=== PATIENT | female | born 1960 | race Caucasian/White ===

== ENCOUNTER 2021-05-01 20:12 | Emergency (ER) | payer SELFPAY ==
--- OUTSIDE RECORDS SUMMARY | 2021-05-01 20:14 | XMS REPORT | Continuity of Care Document ---
:1960 Author Organization [facility] t Address formerly [facility] [place] [address] Care Team Providers Name Role Phone Prema ADAMS Primary Care Physician Unavailable ZASANCHEZ Attending Clinician Unavailable Etta FRY Attending Clinician Unavailable Tess PADILLA Attending Clinician Unavailable Prema DUFFY Attending Clinician Unavailable ROHIT Attending Clinician Unavailable Victor Manuel CURTIS Attending Clinician Unavailable BARBRA Attending Clinician Unavailable Prema ADAMS Attending Clinician Unavailable Shandra REBOLLEDO Attending Clinician Unavailable Tess WARD Attending Clinician Unavailable DOROTEO, Justice Attending Clinician Unavailable Anju OROZCO Attending Clinician Unavailable HEBERT Attending Clinician Unavailable Elfego LIM Attending Clinician Unavailable Efra ESPARZA Attending Clinician Unavailable Angela SANCHEZ Attending Clinician Unavailable Anju MANN Attending Clinician Unavailable JUNE Attending Clinician Unavailable Efra ESPARZA Attending Clinician Unavailable Shandra MARISCAL Attending Clinician Unavailable KYLEE, Melba Attending Clinician Unavailable Maricruz MICHEL Attending Clinician Unavailable Payers Payer Name Policy Type Policy Number Effective Date Expiration Date Carlos HUNT [id number] 0710-05-01 2021 PLANNING INDIGENT 00:00:00 00:00:00 Problems This patient has no known problems. Allergies, Adverse Reactions, Alerts This patient has no known allergies or adverse reactions. Medications This patient has no known medications. Procedures This patient has no known procedures. Encounters Start End Encounter Admission Attending Care Care Encounter Source Date/Time Date/Time Type Type Clinicians Facility Department ID 2021-06-15 2021-06-15 Outpatient [facility] [id number] [place] [address] 00:00:00 00:00:00 Health 2021-05-31 2021-05-31 Outpatient [facility] [id number] [place] 00:00:00 00:00:00 [facility] 2021-05-18 2021-05-18 Outpatient [facility] [id number] [place] 00:00:00 00:00:00 [facility] 2021-05-11 2021-05-11 Outpatient HEBERT, [facility] [id number] [place] 00:00:00 00:00:00 [facility] 2021-05-02 2021-05-02 [id number] [place] 00:00:00 00:00:00 [facility] 2021-05-01 2021-05-01 [id number] [place] 07:59:05 09:12:17 [facility] 2021-04-20 2021-04-20 Outpatient [facility] [id number] [place] 07:21:09 10:23:16 [facility] 2021-04-19 2021-04-19 Outpatient CLIVE, [facility] [id number] [place] 08:57:09 12:02:19 [facility] 2021-04-12 2021-04-12 [facility] [id number] [place] 11:07:25 11:35:47 [facility] 2021-04-12 2021-04-12 [facility] [id number] [place] 10:02:46 10:42:29 [facility] 2021-04-10 2021-04-10 Outpatient ROHIT, [facility] [id number] [place] 14:45:29 15:31:40 [facility] 2021-04-05 2021-04-05 Outpatient [facility] [id number] [place] 07:35:17 10:25:03 [facility] 2021-04-03 2021-04-03 Outpatient [facility] [id number] [place] 00:00:00 00:00:00 [facility] 2021-04-02 2021-04-02 Outpatient [facility] [id number] [place] 16:13:09 16:18:39 [facility] 2021-04-02 2021-04-02 [facility] [id number] [place] 00:00:00 00:00:00 [facility] 2021-03-27 2021-03-27 Outpatient [facility] [id number] [place] 00:00:00 00:00:00 [facility] 2021-03-27 2021-03-27 Outpatient [facility] [id number] [place] 00:00:00 00:00:00 [facility] 2021-03-26 2021-03-26 Outpatient [facility] [id number] [place] 00:00:00 00:00:00 [facility] 2021-03-22 2021-03-22 Outpatient EMPERATRIZINGAME [facility] [id number] [place] 05:49:17 14:32:38 , MILTON Cervantes [facility] 2021-03-20 2021-03-20 Emergency [facility] [id number] [place] 13:51:00 22:32:00 [facility] 2021-03-20 2021-03-20 Emergency [facility] [id number] [place] 17:35:21 17:35:21 [facility] 2021-03-20 2021-03-20 Emergency 1 BELLE, [facility] [id number] [place] 13:51:00 13:51:00 [facility] 2021-03-20 2021-03-20 Outpatient [facility] [id number] [place] 11:20:11 11:43:56 [facility] 2021-03-19 2021-03-19 Outpatient [facility] [id number] [place] 09:19:44 10:13:10 [facility] 2021-03-14 2021-03-14 [facility] [id number] [place] 07:23:11 14:01:19 [facility] 2021-03-09 2021-03-09 Outpatient BRYAN, [facility] [id number] [place] 13:50:05 13:54:41 [facility] 2021-03-09 2021-03-09 [facility] [id number] [place] 00:00:00 00:00:00 [facility] 2021-03-08 2021-03-08 Outpatient [facility] [id number] [place] 16:09:53 17:01:12 [facility] 2021-03-08 2021-03-08 [facility] [id number] [place] 07:12:11 09:08:51 [facility] 2021-03-08 2021-03-08 Outpatient [facility] [id number] [place] 00:00:00 00:00:00 [facility] 2021-03-07 2021-03-07 [facility] [id number] [place] 07:28:41 17:06:28 [facility] 2021-02-16 2021-02-28 [facility] [id number] [place] 17:54:00 18:00:00 ABIMAEL [facility] 2021-02-27 2021-02-27 Outpatient [facility] [id number] [place] 13:47:56 23:59:00 [facility] 2021-02-20 2021-02-20 Outpatient [facility] [id number] [place] 14:56:30 23:59:00 [facility] 2021-02-15 2021-02-16 [facility] [id number] [place] 18:43:00 17:37:00 [facility] 2021-02-15 2021-02-15 [facility] [id number] [place] 18:43:00 18:43:00 [facility] 2021-02-15 2021-02-15 Outpatient [facility] [id number] [place] 07:30:09 14:05:13 [facility] 2021-02-12 2021-02-12 [facility] [id number] [place] 00:00:00 00:00:00 [facility] 2021-02-01 2021-02-01 [facility] [id number] [place] 00:00:00 00:00:00 [facility] 2021-01-19 2021-01-19 [facility] [id number] [place] 09:16:35 23:59:00 [facility] 2021-01-19 2021-01-19 [facility] [id number] [place] 08:42:18 09:33:54 [facility] 2021-01-16 2021-01-16 Outpatient [facility] [id number] [place] 08:13:29 08:41:37 [facility] 2021-01-15 2021-01-15 Outpatient [facility] [id number] [place] 00:00:00 00:00:00 [facility] 2021-01-10 2021-01-10 [facility] [id number] [place] 07:38:08 13:33:18 [facility] 2021-01-10 2021-01-10 [facility] [id number] [place] 00:00:00 00:00:00 [facility] 2021-01-03 2021-01-03 Outpatient PAM, [facility] [id number] [place] 08:13:41 10:31:26 [facility] 2020-12-28 2020-12-28 Outpatient BRYAN, [facility] [id number] [place] 06:48:31 10:43:42 [facility] 2020-12-20 2020-12-20 Outpatient ZADOMENICAR, [facility] [id number] [place] 00:00:00 00:00:00 [facility] 2020-12-19 2020-12-19 Outpatient ZADOMENICAR, [facility] [id number] [place] 00:00:00 00:00:00 [facility] 2020-12-05 2020-12-05 Outpatient ROSSIR, [facility] [id number] [place] 00:00:00 00:00:00 [facility] 2020-11-30 2020-11-30 Outpatient CARNIA, [facility] [id number] [place] 00:00:00 00:00:00 [facility] 2020-11-24 2020-11-24 Outpatient ESPARZA, [facility] [id number] [place] 10:32:24 10:41:06 [facility] 2020-11-24 2020-11-24 Outpatient [facility] [id number] [place] 00:00:00 00:00:00 [facility] 2020-11-24 2020-11-24 Outpatient ROSSIR, [facility] [id number] [place] 00:00:00 00:00:00 [facility] 2020-11-23 2020-11-23 Outpatient LAURA, [facility] [id number] [place] 07:14:19 15:45:33 [facility] 2020-11-22 2020-11-22 Outpatient MACKENZIE, [facility] [id number] [place] 00:00:00 00:00:00 [facility] 2020-11-22 2020-11-22 Outpatient LAURA, [facility] [id number] [place] 00:00:00 00:00:00 [facility] 2020-11-22 2020-11-22 Outpatient [facility] [id number] [place] 00:00:00 00:00:00 [facility] 2020-11-17 2020-11-17 Outpatient CASSIDYPATTYU, [facility] [id number] [place] 08:37:17 09:46:27 [facility] 2020-11-16 2020-11-16 Outpatient [facility] [id number] [place] 00:00:00 00:00:00 [facility] 2020-11-09 2020-11-09 Outpatient ZAHIR, [facility] [id number] [place] 07:18:58 14:12:04 [facility] 2020-11-08 2020-11-08 Outpatient ZAHIR, [facility] [id number] [place] 07:20:02 07:20:02 [facility] 2020-11-07 2020-11-07 Outpatient [facility] [id number] [place] 08:56:51 10:41:20 [facility] 2020-11-01 2020-11-01 Outpatient ZAHIR, [facility] [id number] [place] 12:12:56 12:18:43 [facility] 2020-11-01 2020-11-01 Outpatient ZAHIR, [facility] [id number] [place] 00:00:00 00:00:00 [facility] 2020-10-27 2020-10-27 Outpatient ZAHIR, [facility] [id number] [place] 00:00:00 00:00:00 [facility] 2020-10-25 2020-10-25 Outpatient ZAHIR, [facility] [id number] [place] 10:22:05 23:59:00 [facility] 2020-10-25 2020-10-25 Outpatient ZAHIR, [facility] [id number] [place] 12:07:10 14:55:26 [facility] 2020-10-25 2020-10-25 Outpatient ZAHIR, [facility] [id number] [place] 07:22:11 07:22:11 [facility] 2020-10-19 2020-10-19 Outpatient ESPARZA, [facility] [id number] [place] 09:15:23 09:42:11 [facility] 2020-10-15 2020-10-16 Emergency HOOT, [facility] [id number] [place] 17:22:00 02:18:00 [facility] 2020-10-15 2020-10-15 Emergency KYLEE, [facility] [id number] [place] 18:12:53 18:12:53 [facility] 2020-10-11 2020-10-[address] [facility] [id number] [place] 08:42:57 08:51:00 [facility] 2020-10-11 2020-10-[address] [facility] [id number] [place] 00:00:00 00:00:00 [facility] 2020-10-10 2020-10-10 [facility] [id number] [place] 07:16:46 10:17:40 [facility] 2020-10-03 2020-10-[address] [facility] [id number] [place] 16:51:00 00:44:00 [facility] Results Test Description Test Time Test Comments Results Result Comments Source HIV 1+2 Ab+HIV1 p24 Ag SerPl Ql [place] 2021-03-20 19:45:04 Test Item Value Reference Range Interpretation Comme nts HIV 1+2 Ab+HIV1 p24 Ag SerPl Ql IA (test code = 23282-2) NEGATIVE Negative SARS-CoV-2 RNA Resp Ql [id number] 04:09:13 Test Item Value Reference Range Interpretation Comments Hospitalized? (test No code = 65084-8) ICU? (test code = No 73673-3) Symptomatic as defined No by CDC? (test code = 45907-3) Employed in No Healthcare? (test code = 24309-4) Resident in a No congregate care setting (including nursing homes, residential care for people with intellectual and developmental disabilities, psychiatric treatment facilities, group homes, board and care homes, homeless longterm, foster care or other): (test code = 97227-9) ? (test code = No 41968-3) SARS-CoV-2 RNA Resp Ql NOT DETECTED Not Detected INTER PRETATION: No ALEJANDRA+probe (test code = detec table levels 03255-8) of SARS-CoV-2 Coronavirus (COVID-19) were present in this patient's sampl e by this test. A no t detected result does not exclud e the possibility of active infectio n with this virus due to other factor s that may affect the results such as a poorly collecte d sample, viral titers below th e limit of detect ion of the assay, a nd the infrequent possibility of inhibitors in t he sample. This re sult should be interpreted in conjunction wit h clinical, radiographic, a nd other laborator y findings and sh ould not be used as the sole indicator of active infectio n with SARS-CoV-2 Coronavirus (COVID-19). COMMENT: This cherry real-time reverse transcriptase polymerase chain reaction (RT-PCR) test rapidly detects SARS-CoV-2 (COVID-19) virus from nasopharyngeal and nasal swab specimens. In accordance with the FDA's guidance document "Policy for Diagnostic Tests for Coronavirus Disease-2019 during the Public Health Emergency", this test was developed, and its performance characteristics were verified by the [facility] molecular diagnostics laboratory and is authorized for clinical diagnostic use. This laboratory is certified under the Clinical Laboratory Improvement Amendments (CLIA) as qualified to perform high complexity clinical laboratory testing.
[2021-05-01] MEDS ORDERED: HYDROCODONE/APAP 10/325 TAB ONE (22:35)
--- NOTE | 2021-05-01 22:44 | EDPHYS ---
Physician Documentation [facility] Name: Yamilka Edward Age: 60 yrs Sex: Female : 1960 Arrival Date: 05/01/2021 Time: 20:16 Bed 11 Private MD: ED Physician Parrish Hernandez HPI: 05/01 20:50 This 60 yrs old Female presents to ER via EMS with complaints of Fall Injury. rn 20:50 Details of fall: The patient fell from an upright position, while walking. Onset: The rn symptoms/episode began/occurred just prior to arrival. Associated injuries: The patient sustained Right knee and right thigh. Severity of symptoms: At their worst the symptoms were moderate, in the emergency department the symptoms have improved. The patient has not experienced similar symptoms in the past. The patient has not recently seen a physician. Patient reports was standing and walking, fell onto both knees, thinks hit right thigh with coffee table. Reports right knee and right thigh is was hurting. No head injury or loss of consciousness. No other injuries. States left knee does not feel injured or broken.. Historical: - Allergies: 20:43 Aspirin; lp1 20:43 PENICILLINS; lp1 20:43 Betadine; lp1 20:43 erythromycin; lp1 20:43 Iodine; lp1 20:43 Zofran; lp1 - Home Meds: 20:43 Cymbalta 60 mg oral cpDR 2 caps once daily [Active]; Abilify 10 mg oral tab 1 tab once lp1 daily [Active]; amlodipine 5 mg tab 1 tab once daily [Active]; lithium carbonate 300 mg Oral tab 1 tab 3 times per day [Active]; Dexilant 30 mg oral CpDB 1 cap once daily [Active]; Topamax 100 mg Oral tab [Active]; mirtazapine 7.5 mg Oral tab 1 tab once daily [Active]; - PMHx: 20:43 Hypertensive disorder; Fibromyalgia; Depressive disorder; Rheumatoid arthritis; lp1 - PSHx: 20:43 tubal ligation; breast lump removal; lp1 - Immunization history:: Adult Immunizations up to date, Client reports receiving the 2nd dose of the Covid vaccine, Date received: October 31, 2020 Flu vaccine is up to date. - Social history:: Smoking status: Patient denies any tobacco usage or history of. - Family history:: not pertinent. - Hospitalizations: : No recent hospitalization is reported. - Code Status:: Full code. ROS: 20:50 Constitutional: Negative for fever, chills, and weight loss, Eyes: Negative for injury, rn pain, redness, and discharge, Neck: Negative for injury, pain, and swelling, Cardiovascular: Negative for chest pain, palpitations, and edema, Respiratory: Negative for shortness of breath, cough, wheezing, and pleuritic chest pain, Abdomen/GI: Negative for abdominal pain, nausea, vomiting, diarrhea, and constipation, Back: Negative for injury and pain, MS/Extremity: Positive for right knee and thigh injury and pain Skin: Negative for injury, rash, and discoloration, Neuro: Negative for headache, weakness, numbness, tingling, and seizure. Exam: 20:50 Constitutional: This is a well developed, well nourished patient who is awake, alert, rn and in no acute distress. Head/Face: Normocephalic, atraumatic. Eyes: Periorbital areas with no swelling, redness, or edema. MS/ Extremity: Pulses equal, no cyanosis. Neurovascular intact. Painless and full normal range of motion of left knee and hip. No tenderness distally. Mild tenderness right lateral thigh and right knee but able to actively range right knee and hip slowly. No patellar tenderness or dislocation. Vital Signs: 20:45 BP 121 / 75; Pulse 79; Resp 18; Temp 98.3(O); Pulse Ox 99% on R/A; Weight 94.35 kg (R); lp1 Height 5 ft. 8 in. (172.72 cm); Pain 8/10; 23:05 BP 114 / 72; Pulse 65; Resp 20 S; Temp 97.9(O); Pulse Ox 99% on R/A; cc4 20:45 Body Mass Index 31.63 (94.35 kg, 172.72 cm) lp1 MDM: 20:27 Patient medically screened. rn 22:42 Differential diagnosis: contusion, fracture, sprain, strain. Data reviewed: vital rn signs, nurses notes, radiologic studies, plain films, and as a result, I will discharge patient. Test interpretation: by ED physician or midlevel provider: plain radiologic studies, X-ray right femur and knee negative for acute fracture or dislocation.. Counseling: I had a detailed discussion with the patient and/or guardian regarding: the historical points, exam findings, and any diagnostic results supporting the discharge/admit diagnosis, radiology results, the need for outpatient follow up, to return to the emergency department if symptoms worsen or persist or if there are any questions or concerns that arise at home. Response to treatment: the patient's symptoms have markedly improved after treatment, and as a result, I will discharge patient. Special discussion: I discussed with the patient/guardian in detail that at this point there is no indication for admission to the hospital. It is understood, however, that if the symptoms persist or worsen the patient needs to return immediately for re-evaluation. 05/01 20:32 Order name: XRAY Femur RIGHT rn Administered Medications: 22:35 Drug: [place] (HYDROcodone-acetaminophen) 10 mg-325 mg 1 tabs Route: PO; cc4 23:05 Follow up: Response: No adverse reaction; Pain is decreased cc4 Disposition Summary: 05/01/21 22:44 Discharge Ordered Location: Home rn Problem: new rn Symptoms: have improved rn Condition: Stable rn Diagnosis - Contusion of right knee rn Followup: rn - With: Private Physician - When: As needed - Reason: Recheck today's complaints, Re-evaluation by your physician Discharge Instructions: - Discharge Summary Sheet rn - Contusion rn - Acute Knee Pain, Adult rn Forms: - Medication Reconciliation Form rn - Thank You Letter rn - Antibiotic corporate strategy intern - Prescription Opioid Use rn Signatures: Dispatcher [employer] Parrish Kline MD MD rn Pena, Laura RN RN lp1 Cindy Maradiaga RN RN cc4
--- NOTE | 2021-05-01 22:44 | ER ---
Nurse's Notes [facility] Name: Yamilka Edward Age: 60 yrs Sex: Female : 1960 Arrival Date: 05/01/2021 Time: 20:16 Bed 11 Private MD: Diagnosis: Contusion of right knee Presentation: 05/01 20:38 Chief complaint: EMS states: Called for patient who tripped in living room, falling lp1 onto knees, reporting pain to right anterior knee and pain with weightbearing. 20:41 Coronavirus screen: At this time, the client does not indicate any symptoms associated lp1 with coronavirus-19. Ebola Screen: No symptoms or risks identified at this time. 20:41 Method Of Arrival: EMS: [facility] lp1 20:45 Acuity: KRYSTLE 4 lp1 20:45 Initial Sepsis Screen: Does the patient meet any 2 criteria? No. Patient's initial lp1 sepsis screen is negative. Does the patient have a suspected source of infection? No. Patient's initial sepsis screen is negative. Risk Assessment: Do you want to hurt yourself or someone else? Patient reports no desire to harm self or others. Onset of symptoms was May 01, 2021. Care prior to arrival: Medication(s) given: Tylenol, 1000 mg. Historical: - Allergies: 20:43 Aspirin; lp1 20:43 PENICILLINS; lp1 20:43 Betadine; lp1 20:43 erythromycin; lp1 20:43 Iodine; lp1 20:43 Zofran; lp1 - Home Meds: 20:43 Cymbalta 60 mg oral cpDR 2 caps once daily [Active]; Abilify 10 mg oral tab 1 tab once lp1 daily [Active]; amlodipine 5 mg tab 1 tab once daily [Active]; lithium carbonate 300 mg Oral tab 1 tab 3 times per day [Active]; Dexilant 30 mg oral CpDB 1 cap once daily [Active]; Topamax 100 mg Oral tab [Active]; mirtazapine 7.5 mg Oral tab 1 tab once daily [Active]; - PMHx: 20:43 Hypertensive disorder; Fibromyalgia; Depressive disorder; Rheumatoid arthritis; lp1 - PSHx: 20:43 tubal ligation; breast lump removal; lp1 - Immunization history:: Adult Immunizations up to date, Client reports receiving the 2nd dose of the Covid vaccine, Date received: October 31, 2020 Flu vaccine is up to date. - Social history:: Smoking status: Patient denies any tobacco usage or history of. - Family history:: not pertinent. - Hospitalizations: : No recent hospitalization is reported. - Code Status:: Full code. Screenin:25 Fall Risk Fall in past 12 months (25 points). cc4 20:43 Abuse screen: Denies threats or abuse. Denies injuries from another. Nutritional lp1 screening: No deficits noted. Tuberculosis screening: No symptoms or risk factors identified. Assessment: 20:25 General: Appears in no apparent distress. comfortable, Behavior is calm, cooperative. cc4 Pain: Complains of pain in right thigh \T\ right knee s/p fall \T\ home Pain radiates to right knee into right thigh. Pain currently is 4 out of 10 on a pain scale. Quality of pain is described as aching, Pain began 2 hours ago. Is intermittent, Alleviated by medications, reports pain decreasing from Tylenol given per EMS \T\ scene. Aggravated by weight bearing, leg immobilizer removed from right leg per Dr. Hernandez with exam; drill press set up operator radial here with portable X-rays done; ice pack applied right thigh. Neuro: No deficits noted. Level of Consciousness is awake, alert, obeys commands, Oriented to person, place, time, situation. Cardiovascular: No deficits noted. Respiratory: No deficits noted. Airway is patent Respiratory effort is even, unlabored, Respiratory pattern is regular, symmetrical. GI: No signs and/or symptoms were reported involving the gastrointestinal system. : No signs and/or symptoms were reported regarding the genitourinary system. EENT: No signs and/or symptoms were reported regarding the EENT system. Derm: No deficits noted. Skin is intact, No bruising noted. Musculoskeletal: No deficits noted. Capillary refill < 3 seconds, scant edema noted right knee, otherwise, no deformity noted.. 21:30 Reassessment: No changes from previously documented assessment. Resting quietly. cc4 22:35 Pain: Complains of pain in right thigh; right hip Pain radiates to radiating from right cc4 thigh into right hip Pain currently is 10 out of 10 on a pain scale. Quality of pain is described as sharp, throbbing, Pain began 2 hours ago. with fall \T\ home; Dr. Hernandez notified with new order received; [place] 10 mg given po. 23:05 Reassessment: Patient appears in no apparent distress at this time. Reports pain cc4 decreased to 6/10 on pain scale of right thigh/hip. Patient states feeling better. Vital Signs: 20:45 BP 121 / 75; Pulse 79; Resp 18; Temp 98.3(O); Pulse Ox 99% on R/A; Weight 94.35 kg (R); lp1 Height 5 ft. 8 in. (172.72 cm); Pain 8/10; 23:05 BP 114 / 72; Pulse 65; Resp 20 S; Temp 97.9(O); Pulse Ox 99% on R/A; cc4 20:45 Body Mass Index 31.63 (94.35 kg, 172.72 cm) lp1 ED Course: 20:16 Patient arrived in ED. mw2 20:25 Patient has correct armband on for positive identification. Fall risk band placed. Bed cc4 in low position. Call light in reach. Side rails up X2. Adult w/ patient. 20:27 Parrish Hernandez MD is Attending Physician. rn 20:48 Arm band placed on. lp1 20:49 Triage completed. lp1 20:57 XRAY Femur RIGHT In Process Unspecified. EDMS 21:08 Cindy Maradiaga, ALLIE is Primary Nurse. cc4 23:05 No provider procedures requiring assistance completed. cc4 23:05 Patient did not have IV access during this emergency room visit. cc4 Administered Medications: 22:35 Drug: [place] (HYDROcodone-acetaminophen) 10 mg-325 mg 1 tabs Route: PO; cc4 23:05 Follow up: Response: No adverse reaction; Pain is decreased cc4 Outcome: 22:44 Discharge ordered by . rn 23:05 Discharged to home via wheelchair. cc4 23:05 Condition: improved 23:05 Discharge instructions given to patient, Instructed on discharge instructions, follow up and referral plans. Demonstrated understanding of instructions, follow-up care, medications. 23:27 Patient left the ED. cc4 Signatures: Dispatcher [employer] EDMS Parrish Hernandez MD MD rn Pena, Laura, RN RN 1 Jennifer Avila 2 Cindy Maradiaga RN RN cc4 Corrections: (The following items were deleted from the chart) 20:43 20:38 Chief complaint: EMS states: Called for patient who tripped in living room lp1 lp1
[2021-05-01 23:32] VITALS: BP 121/75; TEMP 98.3; O2SAT 99
--- NOTE | 2021-05-02 14:45 | RAD REPORT ---
EXAM DESCRIPTION: RAD - Femur Right - 05/01/2021 8:56 pm CLINICAL HISTORY: Fall, distal femur and knee pain Femur Right TECHNIQUE: Frontal and lateral views of the right femur. COMPARISON: No relevant prior studies available. FINDINGS: Bones/joints: No acute fracture. Mild to moderate degenerative changes at the right hip articulation. Moderate tricompartmental degenerative changes at the level of the knee. No dislocati on. Soft tissues: Unremarkable. IMPRESSION: No acute injury. Electronically signed by: Joss Braswell MD 05/01/2021 10:26 PM RING STRIKER Due to temporary technical issues with the PACS/Fluency reporting system, reports are being signed by the in house radiologists without review as a courtesy to insure prompt reporting. The interpreting radiologist is fully responsible for the content of the report.
== END 2021-05-01 23:27 | disposition home or self-care (01) ==
LOC: ER 20:12
DX: S80.01XA Contusion of right knee, initial encounter (principal); W01.190A Fall on same level from slipping, tripping and stumbling with subsequent striking against furniture, initial encounter; Y92.009 Unspecified place in unspecified non-institutional (private) residence as the place of occurrence of the external cause; I10 Essential (primary) hypertension; Z88.6 Allergy status to analgesic agent; Z88.0 Allergy status to penicillin
CPT/HCPCS: 99283

== ENCOUNTER 2021-05-10 21:59 | Emergency (ER) | payer SELFPAY ==
--- OUTSIDE RECORDS SUMMARY | 2021-05-10 22:02 | XMS REPORT | Continuity of Care Document ---
:1960 Author Organization [facility] t Address [address] [place] [address] Care Team Providers Name Role Phone Prema ADAMS Primary Care Physician Unavailable Etta FRY Attending Clinician Unavailable HEBERT Attending Clinician Unavailable Tess PADILLA Attending Clinician Unavailable Prema DUFFY Attending Clinician Unavailable ROHIT Attending Clinician Unavailable Victor Manuel CURTIS Attending Clinician Unavailable BARBRA Attending Clinician Unavailable Prema ADAMS Attending Clinician Unavailable Shandra REBOLLEDO Attending Clinician Unavailable ED, Tess Attending Clinician Unavailable DOROTEO, Justice Attending Clinician Unavailable Anju OROZCO Attending Clinician Unavailable HEBERT Attending Clinician Unavailable Elfego LIM Attending Clinician Unavailable ISAIAS, Efra Attending Clinician Unavailable Angela SANCHEZ Attending Clinician Unavailable Anju MANN Attending Clinician Unavailable JUNE Attending Clinician Unavailable ISAIAS, Efra Attending Clinician Unavailable Shandra MARISCAL Attending Clinician Unavailable KYLEE, Melba Attending Clinician Unavailable Maricruz MICHEL Attending Clinician Unavailable Payers Payer Name Policy Type Policy Number Effective Date Expiration Date Carlos HUNT [id number] [id number] 2021 [employer] 00:00:00 00:00:00 Problems This patient has no known problems. Allergies, Adverse Reactions, Alerts This patient has no known allergies or adverse reactions. Medications This patient has no known medications. Procedures This patient has no known procedures. Encounters Start End Encounter Admission Attending Care Care Encounter Source Date/Time Date/Time Type Type Clinicians Facility Department ID 2021-07-11 2021-07-11 Outpatient [facility] [id number] [place] 00:00:00 00:00:00 [facility] 2021-06-15 2021-06-15 Outpatient [facility] [id number] [address] [place] [address] 00:00:00 00:00:00 [facility] 2021-05-31 2021-05-31 Outpatient [facility] [id number] [place] 00:00:00 00:00:00 [facility] 2021-05-18 2021-05-18 Outpatient [facility] [id number] [place] 00:00:00 00:00:00 [facility] 2021-05-11 2021-05-11 Outpatient [facility] [id number] [place] 00:00:00 00:00:00 [facility] 2021-05-02 2021-05-02 Outpatient [facility] [id number] [place] 07:29:11 14:00:13 [facility] 2021-05-01 2021-05-01 Outpatient [facility] [id number] [place] 07:59:05 09:12:17 [facility] 2021-04-20 2021-04-20 Outpatient [facility] [id number] [place] 07:21:09 10:23:16 [facility] 2021-04-19 2021-04-19 Outpatient CLIVE, [facility] [id number] [place] 08:57:09 12:02:19 [facility] 2021-04-12 2021-04-12 Outpatient [facility] [id number] [place] 11:07:25 11:35:47 [facility] 2021-04-12 2021-04-12 Outpatient [facility] [id number] [place] 10:02:46 10:42:29 [facility] 2021-04-10 2021-04-10 Outpatient ROHIT, [facility] [id number] [place] 14:45:29 15:31:40 [facility] 2021-04-05 2021-04-05 Outpatient [facility] [id number] [place] 07:35:17 10:25:03 [facility] 2021-04-03 2021-04-03 Outpatient [facility] [id number] [place] 00:00:00 00:00:00 [facility] 2021-04-02 2021-04-02 Outpatient [facility] [id number] [place] 16:13:09 16:18:39 [facility] 2021-04-02 2021-04-02 Outpatient [facility] [id number] [place] 00:00:00 00:00:00 [facility] 2021-03-27 2021-03-27 Outpatient [facility] [id number] [place] 00:00:00 00:00:00 [facility] 2021-03-27 2021-03-27 Outpatient [facility] [id number] [place] 00:00:00 00:00:00 [facility] 2021-03-26 2021-03-26 Outpatient [facility] [id number] [place] 00:00:00 00:00:00 [facility] 2021-03-22 2021-03-22 Outpatient BLASSINGAME [facility] [id number] [place] 05:49:17 14:32:38 , MILTON Cerv[facility] 2021-03-20 2021-03-20 Emergency [facility] [id number] [place] 13:51:00 22:32:00 [facility] 2021-03-20 2021-03-20 Emergency [facility] [id number] [place] 17:35:21 17:35:21 [facility] 2021-03-20 2021-03-20 Emergency 1 [facility] [id number] [place] 13:51:00 13:51:00 [facility] 2021-03-20 2021-03-20 Outpatient [facility] [id number] [place] 11:20:11 11:43:56 [facility] 2021-03-19 2021-03-19 Outpatient [facility] [id number] [place] 09:19:44 10:13:10 [facility] 2021-03-14 2021-03-14 Outpatient LISANDRA, [facility] [id number] [place] 07:23:11 14:01:19 [facility] 2021-03-09 2021-03-09 Outpatient BRYAN, [facility] [id number] [place] 13:50:05 13:54:41 [facility] 2021-03-09 2021-03-09 Outpatient HEBERT, [facility] [id number] [place] 00:00:00 00:00:00 [facility] 2021-03-08 2021-03-08 Outpatient [facility] [id number] [place] 16:09:53 17:01:12 [facility] 2021-03-08 2021-03-08 Outpatient [facility] [id number] [place] 07:12:11 09:08:51 [facility] 2021-03-08 2021-03-08 Outpatient [facility] [id number] [place] 00:00:00 00:00:00 [facility] 2021-03-07 2021-03-07 Outpatient ROSEDEIDRA, [facility] [id number] [place] 07:28:41 17:06:28 [facility] 2021-02-16 2021-02-28 [facility] [id number] [place] 17:54:00 18:00:00 ABIMAEL [facility] 2021-02-27 2021-02-27 Outpatient [facility] [id number] [place] 13:47:56 23:59:00 [facility] 2021-02-20 2021-02-20 Outpatient [facility] [id number] [place] 14:56:30 23:59:00 [facility] 2021-02-15 2021-02-16 [facility] [id number] [place] 18:43:00 17:37:00 [facility] 2021-02-15 2021-02-15 Emergency 1 [facility] [id number] [place] 18:43:00 18:43:00 [facility] 2021-02-15 2021-02-15 Outpatient [facility] [id number] [place] 07:30:09 14:05:13 [facility] 2021-02-12 2021-02-12 Outpatient [facility] [id number] [place] 00:00:00 00:00:00 [facility] 2021-02-01 2021-02-01 Outpatient [facility] [id number] [place] 00:00:00 00:00:00 ADALID [facility] 2021-01-19 2021-01-19 Outpatient [facility] [id number] [place] 09:16:35 23:59:00 [facility] 2021-01-19 2021-01-19 Outpatient [facility] [id number] [place] 08:42:18 09:33:54 [facility] 2021-01-16 2021-01-16 Outpatient [facility] [id number] [place] 08:13:29 08:41:37 [facility] 2021-01-15 2021-01-15 Outpatient [facility] [id number] [place] 00:00:00 00:00:00 [facility] 2021-01-10 2021-01-10 Outpatient [facility] [id number] [place] 07:38:08 13:33:18 [facility] 2021-01-10 2021-01-10 Outpatient LISANDRA, [facility] [id number] [place] 00:00:00 00:00:00 [facility] 2021-01-03 2021-01-03 Outpatient PAM, [facility] [id number] [place] 08:13:41 10:31:26 [facility] 2020-12-28 2020-12-28 Outpatient BRYAN, [facility] [id number] [place] 06:48:31 10:43:42 [facility] 2020-12-20 2020-12-20 Outpatient ZADOMENICAR, [facility] [id number] [place] 00:00:00 00:00:00 [facility] 2020-12-19 2020-12-19 Outpatient ROSSIR, [facility] [id number] [place] 00:00:00 00:00:00 [facility] 2020-12-05 2020-12-05 Outpatient ROSSIR, [facility] [id number] [place] 00:00:00 00:00:00 [facility] 2020-11-30 2020-11-30 Outpatient MARCOET, [facility] [id number] [place] 00:00:00 00:00:00 [facility] 2020-11-24 2020-11-24 Outpatient ISAIAS, [facility] [id number] [place] 10:32:24 10:41:06 [facility] 2020-11-24 2020-11-24 Outpatient [facility] [id number] [place] 00:00:00 00:00:00 [facility] 2020-11-24 2020-11-24 Outpatient ROSSIR, [facility] [id number] [place] 00:00:00 00:00:00 [facility] 2020-11-23 2020-11-23 Outpatient LAURA, [facility] [id number] [place] 07:14:19 15:45:33 Critical access hospital 2020-11-22 2020-11-22 Outpatient MACKENZIE, [facility] [id number] [place] 00:00:00 00:00:00 [facility] 2020-11-22 2020-11-22 Outpatient LAURA, [facility] [id number] [place] 00:00:00 00:00:00 Critical access hospital 2020-11-22 2020-11-22 Outpatient [facility] [id number] [place] 00:00:00 00:00:00 [facility] 2020-11-17 2020-11-17 Outpatient CASSIDYRAPU, [facility] [id number] [place] 08:37:17 09:46:27 [facility] 2020-11-16 2020-11-16 Outpatient [facility] [id number] [place] 00:00:00 00:00:00 [facility] 2020-11-09 2020-11-09 Outpatient ZAHIR, [facility] [id number] [place] 07:18:58 14:12:04 [facility] 2020-11-08 2020-11-08 Outpatient ZAHIR, [facility] [id number] [place] 07:20:02 07:20:02 [facility] 2020-11-07 2020-11-07 Outpatient [facility] [id number] [place] 08:56:51 10:41:20 [facility] 2020-11-01 2020-11-01 Outpatient ZAHIR, [facility] [id number] [place] 12:12:56 12:18:43 [facility] 2020-11-01 2020-11-01 Outpatient ZAHIR, [facility] [id number] [place] 00:00:00 00:00:00 [facility] 2020-10-27 2020-10-27 Outpatient ZAHIR, [facility] [id number] [place] 00:00:00 00:00:00 [facility] 2020-10-25 2020-10-25 Outpatient ZAHIR, [facility] [id number] [place] 10:22:05 23:59:00 [facility] 2020-10-25 2020-10-25 Outpatient ZAHIR, [facility] [id number] [place] 12:07:10 14:55:26 [facility] 2020-10-25 2020-10-25 Outpatient ZAHIR, [facility] [id number] [place] 07:22:11 07:22:11 [facility] 2020-10-19 2020-10-19 Outpatient ESPARZA, [facility] [id number] [place] 09:15:23 09:42:11 [facility] 2020-10-15 2020-10-16 Emergency HOOT, [facility] [id number] [place] 17:22:00 02:18:00 [facility] 2020-10-152020-10-15 Emergency KYLEE, [facility] [id number] [place] 18:12:53 18:12:53 [facility] 2020-10-11 2020-10-11 Outpatient ZAHIR, [facility] [id number] [place] 08:42:57 08:51:00 [facility] 2020-10-11 2020-10-11 Outpatient ZAHIR, [facility] [id number] [place] 00:00:00 00:00:00 [facility] 2020-10-10 2020-10-10 Outpatient ZAHIR, [facility] [id number] [place] 07:16:46 10:17:40 [facility] 2020-10-03 2020-10-04 Emergency MARILU, [facility] [id number] [place] 16:51:00 00:44:00 [facility] Results Test Description Test Time Test Comments Results Result Comments Source HIV 1+2 Ab+HIV1 p24 Ag SerPl Ql [place] 2021-03-20 19:45:04 Test Item Value Reference Range Interpretation Comme nts HIV 1+2 Ab+HIV1 p24 Ag SerPl Ql IA (test code = 77086-3) NEGATIVE Negative SARS-CoV-2 RNA Resp Ql [id number] 04:09:13 Test Item Value Reference Range Interpretation Comments Hospitalized? (test No code = 15562-6) ICU? (test code = No 10103-2) Symptomatic as defined No by CDC? (test code = 11651-2) Employed in No Healthcare? (test code = 72498-1) Resident in a No congregate care setting (including nursing homes, residential care for people with intellectual and developmental disabilities, psychiatric treatment facilities, group homes, board and care homes, homeless mcc, foster care or other): (test code = 21905-2) ? (test code = No 94991-3) SARS-CoV-2 RNA Resp Ql NOT DETECTED Not Detected INTER PRETATION: No ALEJANDRA+probe (test code = detec table levels 82506-4) of SARS-CoV-2 Coronavirus (COVID-19) were present in [...] its performance characteristics were verified by the [facility] molecular diagnostics laboratory and is authorized for clinical diagnostic use. This laboratory is certified under the Clinical Laboratory Improvement Amendments (CLIA) as qualified to perform high complexity clinical laboratory testing.
[2021-05-10] MEDS ORDERED: PANTOPRAZOLE 40 MG INJ ONE (23:21)
[2021-05-10] MEDS ORDERED: NA CHLORIDE 0.9% 250 ML ONE (23:21)
[2021-05-10] MEDS ORDERED: PROMETHAZINE INJ 25 MG/ML AMP ONE (23:21)
[2021-05-10 23:33] LABS: Absolute Lymphocytes (CBC) 2.1 K/uL (0.7-4.9); Basophils % 0.7 % (0-1.3); Hematocrit 42.9 % (36.0-45.0); Lymphocytes % 16.5 % (15.3-44.8); MPV 8.5 fL (7.6-11.3); RBC Red Blood Cell Count 4.75 M/uL (3.86-4.86)
[2021-05-10 23:40] LABS: Protime INR 0.98
[2021-05-10 23:56] LABS: ALT/SGPT 24 U/L (12-78); AST/SGOT 16 U/L (15-37); Albumin 3.3 g/dL (3.4-5.0); Alkaline Phosphatase 115 U/L (45-117); BUN Blood Urea Nitrogen 9 mg/dL (7-18); Bicarbonate 24 mmol/L (21-32); Bilirubin Direct < 0.1 mg/dL (0-0.2); Bilirubin Total 0.4 mg/dL (0.2-1.0); Glucose Level 138 mg/dL (74-106); Lipase 210 U/L (73-393); Potassium 3.5 mmol/L (3.5-5.1); Protein, Total 7.2 g/dL (6.4-8.2); Sodium Level 143 mmol/L (136-145)
[2021-05-11] MEDS ORDERED: PROMETHAZINE INJ 25 MG/ML AMP ONE ×2 (00:34→00:40)
[2021-05-11] MEDS ORDERED: NA CHLORIDE 0.9% 50 ML ONE (00:37)
--- NOTE | 2021-05-11 02:47 | EDPHYS ---
Physician Documentation [facility] Name: Yamilka Edward Age: 60 yrs Sex: Female : 1960 Arrival Date: 05/10/2021 Time: 22:07 Bed 2 Private MD: ED Physician Parrish Hernandez HPI: 05/11 00:13 This 60 yrs old Female presents to ER via Ambulatory with complaints of Nausea/Vomiting.rn 00:13 The patient presents to the emergency department with nausea, vomiting. Onset: The rn symptoms/episode began/occurred just prior to arrival. Possible causes: unknown. The symptoms are aggravated by nothing. The symptoms are alleviated by nothing. Associated signs and symptoms: Pertinent positives: abdominal pain, GI bleeding, Pertinent negatives: constipation, diarrhea. Severity of symptoms: At their worst the symptoms were moderate in the emergency department the symptoms have improved. The patient has not experienced similar symptoms in the past. The patient has not recently seen a physician. Patient reports single episode of hematemesis, reports coffee grounds mixed with red blood. History of acid reflux. Has never vomited blood before. Had bowel movement earlier and that was not black or dark. No recent increase in anti-inflammatories. Does not take blood thinners. Reports weight loss over the last couple of months and decreased appetite but did not know why.. Historical: - Allergies: 05/10 23:30 Aspirin; as6 23:30 Betadine; as6 23:30 Erythromycin; as6 23:30 Iodine; as6 23:30 PENICILLINS; as6 23:30 Zofran; as6 - Home Meds: 23:30 Abilify 10 mg Oral tab 1 tab once daily [Active]; amlodipine 5 mg tab 1 tab once daily as6 [Active]; Cymbalta 60 mg Oral cpDR 2 caps once daily [Active]; Dexilant 30 mg Oral CpDB 1 cap once daily [Active]; lithium carbonate 300 mg Oral tab 1 tab 3 times per day [Active]; mirtazapine 7.5 mg Oral tab 1 tab once daily [Active]; Topamax 100 mg Oral tab [Active]; - PMHx: 23:30 depressive disorder; Fibromyalgia; Hypertensive disorder; Rheumatoid Arthritis; as6 - PSHx: 23:30 breast lump removal; tubal ligation; as6 - Immunization history:: Client reports receiving the 2nd dose of the Covid vaccine. - Social history:: Smoking status: Patient/guardian denies using tobacco. - Family history:: not pertinent. - Hospitalizations: : No recent hospitalization is reported. ROS: 05/11 00:13 Constitutional: Negative for fever, chills, and weight loss, Eyes: Negative for injury, rn pain, redness, and discharge, Neck: Negative for injury, pain, and swelling, Cardiovascular: Negative for chest pain, palpitations, and edema, Respiratory: Negative for shortness of breath, cough, wheezing, and pleuritic chest pain, Abdomen/GI: Positive for epigastric pain and hematemesis Back: Negative for injury and pain, : Negative for injury, bleeding, discharge, and swelling, MS/Extremity: Negative for injury and deformity, Skin: Negative for injury, rash, and discoloration, Neuro: Negative for headache, weakness, numbness, tingling, and seizure. Exam: 00:13 Constitutional: This is a well developed, well nourished patient who is awake, alert, rn appears anxious Head/Face: Normocephalic, atraumatic. Eyes: Periorbital areas with no swelling, redness, or edema. Cardiovascular: Regular rate and rhythm. No pulse deficits. Respiratory: No increased work of breathing, no retractions or nasal flaring. Abdomen/GI: Soft, epigastric tenderness Skin: Warm, dry MS/ Extremity: Pulses equal, no cyanosis. Neuro: Awake and alert, GCS 15 Vital Signs: 05/10 22:11 BP 131 / 89; Pulse 90; Resp 20; Temp 98.7; Pulse Ox 100% on R/A; Weight 93.89 kg; da3 Height 5 ft. 8 in. (172.72 cm); 23:52 BP 125 / 82; Pulse 83; Resp 18 S; Pulse Ox 99% on R/A; as6 05/11 00:49 BP 126 / 79; Pulse 75; Resp 16; Pulse Ox 99% on R/A; tw5 03:22 BP 105 / 49; Pulse 62; Resp 16; Pulse Ox 100% on R/A; Pain 8/10; tw5 03:25 BP 119 / 78; Pulse 63; Resp 18; Pulse Ox 100% on R/A; tw5 04:27 BP 114 / 69; Pulse 62; Resp 12 S; Pulse Ox 95% on R/A; as6 05:50 BP 125 / 75; Pulse 58; Resp 12 S; Pulse Ox 97% on R/A; as6 05/10 22:11 Body Mass Index 31.47 (93.89 kg, 172.72 cm) da3 MDM: 05/10 22:28 Patient medically screened. rn 05/11 02:45 Differential diagnosis: Nonspecific abd pain, gastritis, gastric ulcer, UGIB. Data rn reviewed: vital signs, nurses notes, lab test result(s), radiologic studies, CT scan, and as a result, I will admit patient. Counseling: I had a detailed discussion with the patient and/or guardian regarding: the historical points, exam findings, and any diagnostic results supporting the discharge/admit diagnosis, lab results, radiology results, the need to transfer to another facility, [facility] does not immediately have the required specialist. Response to treatment: the patient's symptoms have mildly improved after treatment, and as a result, I will admit patient. ED course: No GI here, no hematemesis here, will transfer for GI and endoscopy.. 05/10 22:47 Order name: Basic Metabolic Panel; Complete Time: 23:58 05/10 22:47 Order name: CBC with Diff; Complete Time: 23:58 05/10 22:47 Order name: Hepatic Function; Complete Time: 23:58 05/10 22:47 Order name: Lipase; Complete Time: 23:58 05/10 22:47 Order name: PT-INR; Complete Time: 23:58 05/10 22:47 Order name: Ptt, Activated; Complete Time: 23:58 05/10 22:52 Order name: CT Abd/Pelvis - Without Contrast rn 05/11 03:10 Order name: COVID-19 SARS RT PCR (Document "Date of Onset" if Symptomatic) cs9 05/11 03:11 Order name: SARS-COV-2 RT PCR EDIN 05/10 22:47 Order name: IV Saline Lock; Complete Time: 23:19 rn 05/10 22:47 Order name: Labs collected and sent; Complete Time: 23:19 rn 05/10 22:47 Order name: EKG; Complete Time: 22:48 rn 05/10 22:47 Order name: EKG - Nurse/Tech; Complete Time: 23:14 rn Administered Medications: 05/10 22:52 CANCELLED (Patient Refused): Zofran (Ondansetron) 4 mg IVP once; over 2 minutes rn 23:40 Drug: Phenergan (promethazine) 12.5 mg Route: IVP; Site: right hand; as6 05/11 00:01 Follow up: Response: No adverse reaction as6 05/10 23:51 Drug: ProTONIX (pantoprazole) 40 mg Route: IVP; Site: right hand; as6 05/11 00:01 Follow up: Response: No adverse reaction as6 05/10 23:51 Drug: ProTONIX (pantoprazole) 8 mg/hr Route: IV; Rate: 25 ml/hr; Site: right hand; as05/11 06:27 Follow up: Response: No adverse reaction; IV Status: Infusion continued upon transfer as6 00:41 Drug: Phenergan (promethazine) 12.5 mg Route: IVP; Site: right hand; tw5 00:49 Follow up: Response: No adverse reaction tw5 03:20 Drug: morphine 4 mg Route: IVP; Site: right hand; tw5 04:28 Follow up: Response: No adverse reaction; RASS: Alert and Calm (0) as6 Disposition Summary: 05/11/21 02:47 Transfer Ordered Transfer Location: [facility] rn Reason: Higher level of care rn Condition: Stable rn Problem: new rn Symptoms: have improved rn Accepting Physician: (05/11/21 06:39) as6 Diagnosis - Hematemesis rn Forms: - Medication Reconciliation Form rn - SBAR form rn Signatures: Dispatcher [employer] EDMS Parrish Hernandez MD MD rn Attema, Lee, DISH CARRIER-C DISH CARRIER-Cla1 Jak Catalan RN RN da3 Rosaura Pierce tw5 Pilo Wang RN RN as6 Corrections: (The following items were deleted from the chart) 05/10 22:52 22:47 Zofran (Ondansetron) 4 mg IVP once; over 2 minutes ordered. rn rn 22:55 22:48 Abdomen Pelvis W Con+CT.RAD.BRZ ordered. EDIN EDIN 05/11 06:39 02:47 rn as6
--- NOTE | 2021-05-11 02:47 | ER ---
Nurse's Notes [facility] Name: Yamilka Edward Age: 60 yrs Sex: Female : 1960 Arrival Date: 05/10/2021 Time: 22:07 Bed 2 Private MD: Diagnosis: Hematemesis Presentation: 05/10 22:11 Chief complaint: Patient states: vomiting blood x1. Coronavirus screen: Vaccine status: da3 Patient reports receiving the 2nd dose of the covid vaccine. Ebola Screen: No symptoms or risks identified at this time. Initial Sepsis Screen: Does the patient meet any 2 criteria? No. Patient's initial sepsis screen is negative. Risk Assessment: Do you want to hurt yourself or someone else? Patient reports no desire to harm self or others. Onset of symptoms was May 10, 2021. 22:11 Method Of Arrival: Ambulatory da3 22:11 Acuity: KRYSTLE 3 da3 22:46 Initial Sepsis Screen: Does the patient have a suspected source of infection? No. as6 Patient's initial sepsis screen is negative. Triage Assessment: 22:11 General: Appears in no apparent distress. comfortable, Behavior is calm, cooperative. da3 Pain: Complains of pain in abdomen Pain currently is 7 out of 10 on a pain scale. Historical: - Allergies: 23:30 Aspirin; as6 23:30 Betadine; as6 23:30 Erythromycin; as6 23:30 Iodine; as6 23:30 PENICILLINS; as6 23:30 Zofran; as6 - Home Meds: 23:30 Abilify 10 mg Oral tab 1 tab once daily [Active]; amlodipine 5 mg tab 1 tab once daily as6 [Active]; Cymbalta 60 mg Oral cpDR 2 caps once daily [Active]; Dexilant 30 mg Oral CpDB 1 cap once daily [Active]; lithium carbonate 300 mg Oral tab 1 tab 3 times per day [Active]; mirtazapine 7.5 mg Oral tab 1 tab once daily [Active]; Topamax 100 mg Oral tab [Active]; - PMHx: 23:30 depressive disorder; Fibromyalgia; Hypertensive disorder; Rheumatoid Arthritis; as6 - PSHx: 23:30 breast lump removal; tubal ligation; as6 - Immunization history:: Client reports receiving the 2nd dose of the Covid vaccine. - Social history:: Smoking status: Patient/guardian denies using tobacco. - Family history:: not pertinent. - Hospitalizations: : No recent hospitalization is reported. Screenin:45 Abuse screen: Denies threats or abuse. Nutritional screening: No deficits noted. as6 Tuberculosis screening: No symptoms or risk factors identified. Fall Risk Secondary diagnosis (15 points) impaired mobility, IV access (20 points). Ambulatory Aid- Crutches/Cane/Walker (15 pts). Gait- Normal/Bed Rest/Wheelchair (0 pts) Mental Status- Oriented to own ability (0 pts). Total Arauz Fall Scale indicates High Risk Score (45 or more points). Side Rails Up X 2 Frequent Obs/Assessments Occuring Family Present and informed to notify staff if the need to leave the bedside As available patient and family educated on Fall Prevention Program and Strategies. Assessment: 22:44 General: Appears in no apparent distress. uncomfortable, Behavior is calm, cooperative, as6 flat. Pain: Complains of pain in right upper quadrant and left upper quadrant Quality of pain is described as crampy. Neuro: Level of Consciousness is awake, alert, obeys commands, Oriented to person, place, time, situation. Cardiovascular: Capillary refill < 3 seconds Patient's skin is warm and dry. Respiratory: Airway is patent Trachea midline Respiratory effort is even, unlabored, Respiratory pattern is regular, symmetrical. GI: Abdomen is tender to palpation in right upper quadrant and left upper quadrant Reports nausea, vomiting, since around 1945 today. Derm: Skin is intact. 05/11 00:04 General: Behavior is cooperative, anxious. as6 00:49 Reassessment: Patient states feeling better. Patient states symptoms have improved. tw5 01:52 General: Behavior is drowsy. tw5 01:52 General: Reports " I have a terrible, headache." Patient states that morphine usually tw5 works best for her pain. 02:25 Reassessment: pt states she has a headache, provided notified. as6 03:22 Pain: Pain currently is 8 out of 10 on a pain scale. tw5 04:27 Reassessment: Patient appears in no apparent distress at this time. as6 Vital Signs: 05/10 22:11 BP 131 / 89; Pulse 90; Resp 20; Temp 98.7; Pulse Ox 100% on R/A; Weight 93.89 kg; da3 Height 5 ft. 8 in. (172.72 cm); 23:52 BP 125 / 82; Pulse 83; Resp 18 S; Pulse Ox 99% on R/A; as6 12 00:49 BP 126 / 79; Pulse 75; Resp 16; Pulse Ox 99% on R/A; tw5 03:22 BP 105 / 49; Pulse 62; Resp 16; Pulse Ox 100% on R/A; Pain 8/10; tw5 03:25 BP 119 / 78; Pulse 63; Resp 18; Pulse Ox 100% on R/A; tw5 04:27 BP 114 / 69; Pulse 62; Resp 12 S; Pulse Ox 95% on R/A; as6 05:50 BP 125 / 75; Pulse 58; Resp 12 S; Pulse Ox 97% on R/A; as6 05/10 22:11 Body Mass Index 31.47 (93.89 kg, 172.72 cm) da3 ED Course: 05/10 22:07 Patient arrived in ED. da3 22:14 Triage completed. da3 22:26 Plio Wang, RN is Primary Nurse. as6 22:28 Parrish Hernandez MD is Attending Physician. rn 22:46 Arm band placed on. as6 22:46 Placed in gown. Bed in low position. Call light in reach. Side rails up X2. Adult w/ as6 patient. cardiac monitor technician on. Pulse ox on. NIBP on. Warm blanket given. 23:52 Inserted saline lock: 24 gauge in right hand, using aseptic technique. Blood collected. as6 23:53 CT Abd/Pelvis - Without Contrast In Process Unspecified. EDMS 05/11 01:52 Door closed. Noise minimized. Moved to private room. Verbal reassurance given. tw5 Repositioned patient. 02:47 initiated transfer on PT to [facility]. cs9 03:20 COVID-19 SARS RT PCR (Document "Date of Onset" if Symptomatic) Sent. tw5 03:20 SARS-COV-2 RT PCR Sent. tw5 03:22 COVID swab sent to lab. tw5 06:27 No provider procedures requiring assistance completed. Patient transferred, IV remains as6 in place. Administered Medications: 05/10 22:52 CANCELLED (Patient Refused): Zofran (Ondansetron) 4 mg IVP once; over 2 minutes rn 23:40 Drug: Phenergan (promethazine) 12.5 mg Route: IVP; Site: right hand; 05/11 00:01 Follow up: Response: No adverse reaction 05/10 23:51 Drug: ProTONIX (pantoprazole) 40 mg Route: IVP; Site: right hand; 05/11 00:01 Follow up: Response: No adverse reaction 05/10 23:51 Drug: ProTONIX (pantoprazole) 8 mg/hr Route: IV; Rate: 25 ml/hr; Site: right hand; 05/11 06:27 Follow up: Response: No adverse reaction; IV Status: Infusion continued upon transfer as6 00:41 Drug: Phenergan (promethazine) 12.5 mg Route: IVP; Site: right hand; tw5 00:49 Follow up: Response: No adverse reaction tw5 03:20 Drug: morphine 4 mg Route: IVP; Site: right hand; tw5 04:28 Follow up: Response: No adverse reaction; RASS: Alert and Calm (0) as6 Outcome: 02:47 ER care complete, transfer ordered by . rn 06:27 Transferred by ground EMS to [facility], Transfer form completed. as6 06:27 Condition: stable 06:39 Patient left the ED. as6 Signatures: Dispatcher [employer] EDMS Parrish Hernandez MD MD rn Allan, David, RN RN [id number] Rosaura Pierce 5 Ayah Contreras [facility] Pilo Wang RN RN as6
[2021-05-11] MEDS ORDERED: MORPHINE 4 MG/ML SYR ONE (03:17)
[2021-05-11 06:46] VITALS: TEMP 98.7
[2021-05-11 06:55] VITALS: BP 125/75; O2SAT 97
--- NOTE | 2021-05-11 11:57 | RAD REPORT ---
EXAM DESCRIPTION: CT - Abdomen Pelvis Wo Contrast - 05/11/2021 4:48 am CLINICAL HISTORY: 83 years, Female, nausea;Abd pain COMPARISON: None. TECHNIQUE: Contrast-enhanced images of the abdomen and pelvis were performed utilizing 5 mm slice th ickness at 5 mm interval reconstruction from the lung bases to the ischial tuberosities after the adm inistration of IV contrast. In addition multiplanar reformats in the coronal and sagittal plane were obtained and reviewed. This exam was performed according to our departmental dose-optimization protocol, which includes auto mated exposure control, adjustment of the mA and/or kV according to patient size and/or use of iterat phil reconstruction technique. FINDINGS: The lung bases demonstrate to be clear. Mild elevation of the right hemidiaphragm. The liver demonstrate slight decreased attenuation suggesting mild fatty infiltration. Otherwise the liver, gallbladder, pancreas, spleen and adrenal glands demonstrate to be unremarkable, no focal lesi ons are noted. The kidneys demonstrate normal uptake of contrast media. No evidence for nephrolithiasis and/or hydro nephrosis. Grossly the unopacified stomach, small bowel and large bowel demonstrate to be within normal limits. There is no evidence for bowel dilatation and/or free air. Mild fecal stasis. The appendix is nor mal. There is minimal diverticulosis within the left site colon/sigmoid colon The urinary bladder demonstrate to be unremarkable. The uterus is absent. No significant major adne xal masses are seen. The aorta demonstrate minimal atherosclerotic disease. There is no retroperi toneal lymphadenopathy. There is no evidence for ascites/or significant abnormal fluid collections. The bone windows demonstrate laminectomy with posterior joint injection at L3-L4. There is interverte bral disc cage fixation device at L5/S1. IMPRESSION: Mild fatty infiltration. Mild fecal stasis. Minimal diverticulosis without evidence for acute diverticulitis. Status post hysterectomy. Status post laminectomy with posterior joint injection at L3-L4 and intervertebral disc cage fixation device at L5/S1. Electronically signed by: Sheldon Peralta MD 05/10/2021 11:45 PM CATTLE CARE WORKER Due to temporary technical issues with the PACS/Fluency reporting system, reports are being signed by the in house radiologist without review as a courtesy to ensure prompt reporting. The interpreting r adiologist is fully responsible for the content of the report.
== END 2021-05-11 06:39 | disposition short-term general hospital (02) ==
LOC: ER 21:59
DX: K92.0 Hematemesis (principal); I10 Essential (primary) hypertension; Z88.0 Allergy status to penicillin; Z88.3 Allergy status to other anti-infective agents; Z88.6 Allergy status to analgesic agent; Z88.8 Allergy status to other drugs, medicaments and biological substances; Z20.822 Contact with and (suspected) exposure to COVID-19; Z91.048 Other nonmedicinal substance allergy status
CPT/HCPCS: 36415; 74176; 80048; 80076; 83690; 85025; 85610; 85730; 93005; 96365; 96366; 96375; 99285; C9113; J2550; J7050; U0003

== ENCOUNTER 2021-07-09 18:01 | Inpatient (IN) | payer SELFPAY ==
[2021-07-09 18:52] LABS: Absolute Lymphocytes (CBC) 2.1 K/uL (0.7-4.9); Lymphocytes % 19.2 % (15.3-44.8); MPV 8.2 fL (7.6-11.3); RBC Red Blood Cell Count 5.32 M/uL (3.86-4.86)
[2021-07-09 19:00] LABS: Protime INR 1.03
[2021-07-09] MEDS ORDERED: NA CHLORIDE 0.9% 1,000 ML ONE ×2 (19:18→23:28)
[2021-07-09 19:50] LABS: BUN Blood Urea Nitrogen 6 mg/dL (7-18); Bicarbonate 23 mmol/L (21-32); Glucose Level 100 mg/dL (74-106); Potassium 3.7 mmol/L (3.5-5.1); Sodium Level 139 mmol/L (136-145)
--- NOTE | 2021-07-09 20:00 | RAD REPORT ---
EXAM DESCRIPTION: Shi Single View07/09/2021 7:13 pm CLINICAL HISTORY: Chest pain COMPARISON: none FINDINGS: The lungs appear clear of acute infiltrate. The heart is normal size IMPRESSION: No acute abnormalities displayed
--- NOTE | 2021-07-09 20:18 | RAD REPORT ---
EXAM DESCRIPTION: CT - Head C Spine Mpr Wo Con - 07/09/2021 7:47 pm CLINICAL HISTORY: Headache, neck pain and numbness COMPARISON: None. TECHNIQUE: Computed axial tomography of the head and cervical spine was obtained. Sagittal and coronal reconstruction was performed. All CT scans are performed using dose optimization technique as appropriate and may include automated exposure control or mA/KV adjustment according to patient size. FINDINGS: An intracranial bleed is not seen. The ventricles are normal in caliber. An extra-axial fl uid collection is not noted.Fluid within the visualized sinuses and mastoids is not seen A cervical fracture is not visualized. No dislocation is noted. Moderate left posterolateral disc ost eophyte complex C6-7 IMPRESSION: No acute intracranial abnormality is seen. A cervical fracture is not visualized. Moderate left posterior-lateral disc osteophyte complex C6-7 results in moderate to marked left meera inal stenosis. Further evaluation with nonemergent MRI may be helpful
[2021-07-09 20:29] LABS: ALT/SGPT 24 U/L (12-78); AST/SGOT 16 U/L (15-37); Albumin 3.8 g/dL (3.4-5.0); Alkaline Phosphatase 139 U/L (45-117); Bilirubin Direct < 0.1 mg/dL (0-0.2); Bilirubin Total 0.4 mg/dL (0.2-1.0); NT PRO-BNP 49 pg/mL (<125)
--- NOTE | 2021-07-09 20:31 | EDPHYS ---
Physician Documentation [facility] Name: Yamilka Zamora Age: 60 yrs Sex: Female : 1960 Arrival Date: 07/09/2021 Time: 18:04 Bed 15 Private MD: VIRIDIANA Physician Toney Mayfield HPI: 07/09 18:59 This 60 yrs old Female presents to ER via Ambulatory with complaints of Chest Pain. kdr 18:59 The patient or guardian reports chest pain that is located primarily in the anterior kdr chest wall, chest diffusely. Onset: gradually, 4 day(s) ago. The pain does not radiate. Associated signs and symptoms: Pertinent positives: lightheadedness, nausea, shortness of breath, Increase sleeping, patient states that she has been sleeping most of the last 4 days. She has not urinated today. The chest pain is described as dull, a heaviness, a pressure, squeezing. Duration: The patient or guardian reports multiple episodes, that are intermittent, that wax and wane, with no pattern. Severity of pain: At its worst the pain was mild moderate in the emergency department the pain is unchanged. The patient has not experienced similar symptoms in the past. The patient has not recently seen a physician. Historical: - Allergies: 18:19 Aspirin; jl7 18:19 Betadine; jl7 18:19 Erythromycin; jl7 18:19 Iodine; jl7 18:19 PENICILLINS; jl7 18:19 Zofran; jl7 - PMHx: 18:19 depressive disorder; Fibromyalgia; Hypertensive disorder; Rheumatoid Arthritis; Bipolar jl7 disorder; - Immunization history:: Client reports receiving the 2nd dose of the Covid vaccine. - Social history:: Smoking status: Patient denies any tobacco usage or history of. ROS: 18:59 Constitutional: Negative for fever, chills, and weight loss, Eyes: Negative for injury, kdr pain, redness, and discharge, Neck: Negative for injury, pain, and swelling, Respiratory: Negative for shortness of breath, cough, wheezing, and pleuritic chest pain, Abdomen/GI: Negative for abdominal pain, nausea, vomiting, diarrhea, and constipation, Back: Negative for injury and pain, : Negative for injury, bleeding, discharge, and swelling, MS/Extremity: Negative for injury and deformity, Skin: Negative for injury, rash, and discoloration, Psych: Negative for depression, anxiety, suicide ideation, homicidal ideation, and hallucinations, Allergy/Immunology: Negative for hives, rash, and allergies, Endocrine: Negative for neck swelling, polydipsia, polyuria, polyphagia, and marked weight changes, Hematologic/Lymphatic: Negative for swollen nodes, abnormal bleeding, and unusual bruising. 18:59 Cardiovascular: Positive for chest pain. 18:59 Respiratory: Positive for dyspnea on exertion, shortness of breath, Negative for hemoptysis, orthopnea, pleurisy, sputum production, wheezing. 18:59 Abdomen/GI: Positive for nausea, diarrhea, Negative for abdominal pain, vomiting. Exam: 18:23 ECG was reviewed by the Attending Physician. kdr 20:31 Musculoskeletal/extremity: DVT Exam: No signs of deep vein thrombosis. no pain, no neeraj swelling, no tenderness, negative Homans' sign noted on exam, no appreciated bluish discoloration, no erythema, no increased warmth. Vital Signs: 18:17 BP 126 / 58; Pulse 93; Resp 17; Temp 98.4; Pulse Ox 98% ; Weight 95.25 kg; Height 5 ft. jl7 8 in. (172.72 cm); Pain 8/10; 18:38 BP 129 / 63; Pulse 97; Resp 18; Pulse Ox 98% on R/A; ld1 19:56 BP 117 / 68; Pulse 96; Resp 18; Pulse Ox 99% on R/A; ld1 18:17 Body Mass Index 31.93 (95.25 kg, 172.72 cm) jl7 MDM: 19:28 Patient medically screened. neeraj 20:08 Differential diagnosis: abnormal EKG, anxiety, chest wall pain, congestive heart neeraj failure pancreatitis, pneumonia, stable angina. HEART Score: History: Slightly Suspicious (0). The patient was given aspirin in the Emergency Department. The patient's deep vein thrombosis risk score was calculated as follows: Total Score: 0. This patient was found to be at low risk for a deep vein thrombosis by using the Well's assessment criteria. The patient's pulmonary embolism risk score was calculated as follows: Total Score: 0-2 points. This patient was found to be at low risk for a pulmonary embolism by using the Well's assessment criteria. ELSA Risk Score: TOTAL SCORE = 0. Data reviewed: vital signs, nurses notes, lab test result(s), EKG, radiologic studies, CT scan, plain films. Data interpreted: environmental monitoring technician: rate is 96 beats/min. Test interpretation: by ED physician or midlevel provider: ECG, plain radiologic studies. 20:31 Counseling: I had a detailed discussion with the patient and/or guardian regarding: the neeraj historical points, exam findings, and any diagnostic results supporting the discharge/admit diagnosis, lab results, radiology results, the need for further work-up and treatment in the hospital. 07/09 18:23 Order name: Basic Metabolic Panel kdr 07/09 18:23 Order name: CBC with Diff; Complete Time: 20:05 kdr 07/09 18:23 Order name: LFT's kdr 07/09 18:23 Order name: Magnesium kdr 07/09 18:23 Order name: NT PRO-BNP kdr 07/09 18:23 Order name: PT-INR; Complete Time: 20:05 kdr 07/09 18:23 Order name: Troponin HS kdr 07/09 18:58 Order name: Amylase, Serum kdr 07/09 18:58 Order name: Blood Culture Adult (2) kdr 07/09 18:58 Order name: CPK kdr 07/09 18:58 Order name: Ckmb kdr 07/09 18:58 Order name: Lactate; Complete Time: 20:23 kdr 07/09 18:58 Order name: Lipase kdr 07/09 18:58 Order name: Procalcitonin; Complete Time: 20:51 kdr 07/09 18:58 Order name: Ptt, Activated; Complete Time: 20:05 kdr 07/09 18:58 Order name: Urine Microscopic Only kdr 07/09 18:58 Order name: Amylase EDMS 07/09 18:58 Order name: Blood Culture EDMS 07/09 18:58 Order name: Creatine Phosphokinase EDMS 07/09 19:25 Order name: Glucose, Ancillary Testing; Complete Time: 20:05 EDMS 07/09 20:52 Order name: COVID-19 SARS RT PCR (Document "Date of Onset" if Symptomatic) kb 07/09 21:17 Order name: Urine Dipstick-Ancillary EDMS 07/10 00:48 Order name: Troponin High Sensitivity EDMS 07/10 04:38 Order name: CBC with Automated Diff EDMS 07/10 05:17 Order name: Troponin High Sensitivity EDMS 02/08 05:38 Order name: Comprehensive Metabolic Panel EDOH 07/10 05:38 Order name: Phosphorus EDMS 07/10 05:38 Order name: Lipid Profile EDMS 07/09 18:23 Order name: XRAY Chest (1 view); Complete Time: 20:05 kdr 07/09 18:23 Order name: EKG; Complete Time: 18:23 kdr 07/09 18:23 Order name: Cardiac monitoring; Complete Time: 18:35 kdr 07/09 18:23 Order name: EKG - Nurse/Tech; Complete Time: 18:35 kdr 07/09 18:23 Order name: IV Saline Lock; Complete Time: 18:51 kdr 07/09 18:23 Order name: Labs collected and sent; Complete Time: 18:51 kdr 07/09 18:23 Order name: O2 Per Protocol; Complete Time: 18:35 kdr 07/09 18:23 Order name: O2 Sat Monitoring; Complete Time: 18:35 kdr 07/09 18:58 Order name: Accucheck; Complete Time: 19:15 kdr 07/09 18:58 Order name: IV Saline Lock - Large Bore; Complete Time: 19:07 kdr 07/09 18:58 Order name: Urine Dipstick-Ancillary (obtain specimen); Complete Time: 21:17 kdr 07/09 18:58 Order name: CT Head C Spine; Complete Time: 20:23 kdr 07/10 05:38 Order name: T4 Free EDOH 07/10 05:38 Order name: Thyroid Stimulating Hormone EDOH EC:23 Rate is 92 beats/min. Rhythm is regular, Sinus Rhythm with No ectopy. QRS [place] is kdr Normal. [place] interval is normal. QRS interval is normal. QT interval is normal. Clinical impression: NSR w/ Non-specific ST/T Changes. Administered Medications: 19:23 Drug: NS 0.9% 1000 ml Route: IV; Rate: 1 bolus; Site: left antecubital; ld1 Disposition Summary: 07/09/21 20:29 Hospitalization Ordered Hospitalization Status: Observation neeraj Provider: Dorothy Madrigal neeraj Condition: Fair neeraj Problem: new neeraj Symptoms: have improved neeraj Bed/Room Type: Standard neeraj Location: Telemetry/MedSurg (observation)(07/10/21 07:10) bd Room Assignment: 225(07/10/21 07:10) bd Diagnosis - Chest pain, unspecified neeraj - Obesity, unspecified neeraj - Diarrhea, unspecified neeraj - Weakness neeraj Forms: - Medication Reconciliation Form neeraj - SBAR form neeraj Signatures: Dispatcher [employer] EDRosalinda Zepeda Corey, MD MD cha Rittger, Kevin, MD MD kdr Garcia, Cindy RN RN Destiney Oliveira RN RN jl7 Nicola Clinton PA PA ej Dibbern, Lauren RN RN ld1 Corrections: (The following items were deleted from the chart) 20:46 20:29 Telemetry/MedSurg (observation) neeraj cg 20:46 20:29 neeraj cg 07/10 07:07/09 20:46 [facility] ER HOLD cg bd 07/10 07:07/09 20:46 ERHOLD- bd
--- NOTE | 2021-07-09 20:31 | ER ---
Nurse's Notes [facility] Name: Yamilka Zamora Age: 60 yrs Sex: Female : 1960 Arrival Date: 07/09/2021 Time: 18:04 Bed 15 Private MD: Diagnosis: Chest pain, unspecified;Obesity, unspecified;Diarrhea, unspecified;Weakness Presentation: 07/09 18:17 Chief complaint: Patient states: Squeezing CP x 4 days, also reports feeling ill x 4 jl7 days. Coronavirus screen: At this time, the client does not indicate any symptoms associated with coronavirus-19. Ebola Screen: No symptoms or risks identified at this time. Initial Sepsis Screen: Does the patient meet any 2 criteria? No. Patient's initial sepsis screen is negative. Does the patient have a suspected source of infection? No. Patient's initial sepsis screen is negative. Risk Assessment: Do you want to hurt yourself or someone else? Patient reports no desire to harm self or others. Onset of symptoms was July 05, 2021. 18:17 Method Of Arrival: Ambulatory 7 18:17 Acuity: KRYSTLE 2 jl7 Triage Assessment: 18:19 General: Appears in no apparent distress. uncomfortable, Behavior is calm, cooperative, jl7 appropriate for age. Pain: Complains of pain in mid-sternal area Pain currently is 8 out of 10 on a pain scale. Cardiovascular: Patient's skin is warm and dry. Historical: - Allergies: 18:19 Aspirin; jl7 18:19 Betadine; jl7 18:19 Erythromycin; jl7 18:19 Iodine; jl7 18:19 PENICILLINS; jl7 18:19 Zofran; jl7 - PMHx: 18:19 depressive disorder; Fibromyalgia; Hypertensive disorder; Rheumatoid Arthritis; Bipolar jl7 disorder; - Immunization history:: Client reports receiving the 2nd dose of the Covid vaccine. - Social history:: Smoking status: Patient denies any tobacco usage or history of. Screenin:40 Abuse screen: Denies threats or abuse. Denies injuries from another. Nutritional ld1 screening: No deficits noted. Tuberculosis screening: No symptoms or risk factors identified. Fall Risk None identified. Assessment: 18:38 General: Appears in no apparent distress. comfortable, Behavior is calm, cooperative, ld1 appropriate for age. Pain: Complains of pain in chest Pain does not radiate. Pain currently is 8 out of 10 on a pain scale. Quality of pain is described as throbbing, Pain began suddenly, Is continuous. Neuro: Level of Consciousness is awake, alert, obeys commands, Oriented to person, place, time, situation. Cardiovascular: Capillary refill < 3 seconds Patient's skin is warm and dry. Rhythm is sinus rhythm. Respiratory: Airway is patent Respiratory effort is even, unlabored. GI: Abdomen is round non-distended. : No signs and/or symptoms were reported regarding the genitourinary system. EENT: No signs and/or symptoms were reported regarding the EENT system. Derm: No signs and/or symptoms reported regarding the dermatologic system. Musculoskeletal: No signs and/or symptoms reported regarding the musculoskeletal system. 19:56 General: Appears in no apparent distress. comfortable. ld1 Vital Signs: 18:17 BP 126 / 58; Pulse 93; Resp 17; Temp 98.4; Pulse Ox 98% ; Weight 95.25 kg; Height 5 ft. jl7 8 in. (172.72 cm); Pain 8/10; 18:38 BP 129 / 63; Pulse 97; Resp 18; Pulse Ox 98% on R/A; ld1 19:56 BP 117 / 68; Pulse 96; Resp 18; Pulse Ox 99% on R/A; ld1 18:17 Body Mass Index 31.93 (95.25 kg, 172.72 cm) jl7 ED Course: 18:04 Patient arrived in ED. mr 18:19 Triage completed. jl7 18:19 Arm band placed on right wrist. jl7 18:22 Vernon Max MD is Attending Physician. kdr 18:36 Daysi Pena, ALLIE is Primary Nurse. ld1 18:40 Patient has correct armband on for positive identification. Placed in gown. Bed in low ld1 position. Call light in reach. Side rails up X2. monitoring engineer on. Pulse ox on. NIBP on. Door closed. Noise minimized. Warm blanket given. 18:40 No provider procedures requiring assistance completed. Missed attempt(s): 20 gauge in ld1 left antecubital area. Patient maintains SpO2 saturation greater than 95% on room air. 18:47 Initial lab(s) drawn, by me. Inserted saline lock: 22 gauge in left antecubital area, iw using aseptic technique. Blood collected. 19:13 XRAY Chest (1 view) In Process Unspecified. EDMS 19:23 Blood Culture Adult (2) Sent. ld1 19:23 CPK Sent. ld1 19:23 Amylase, Serum Sent. ld1 19:28 Attending Physician role handed off by Vernon Max MD [facility] 19:28 Toney Mayfield MD is Attending Physician. [facility] 19:48 CT Head C Spine In Process Unspecified. EDMS 20:29 Dorothy Madrigal MD is Hospitalizing Provider. [facility] 21:05 COVID-19 SARS RT PCR (Document "Date of Onset" if Symptomatic) Sent. ld1 21:17 Urine Microscopic Only Sent. lt3 02/ 06:31 Primary Nurse role handed off by Daysi Pena, RN cs9 07:00 Patient admitted, IV remains in place. intact. jl7 Administered Medications: 07/09 19:23 Drug: NS 0.9% 1000 ml Route: IV; Rate: 1 bolus; Site: left antecubital; ld1 Outcome: 20:29 Decision to Hospitalize by Provider. [facility] 07/10 07:00 Admitted to ER Hold. Please see SPARQCode for further documentation. jl7 Condition: stable Discharge instructions given to patient, Instructed on the need for admit, Demonstrated understanding of instructions. 09:12 Patient left the ED. jl7 Signatures: Dispatcher [employer] EDNH Toney Mayfield MD MD cha Rittger, Kevin, MD MD kdr Rivera, Mary mr Williams, Irene, RN RN iw Leal, Jahala, RN RN jl7 Daysi Pena, Ayah Young RN cs9 Estefani Estrada [facility]
[2021-07-09 20:47] LABS: Amylase 60 U/L (25-115); Creatine Phosphokinase 24 U/L (26-192); Lipase 140 U/L (73-393)
[2021-07-09 20:58] LABS: CKMB Creatine Kinase MB < 1.0 ng/mL (1.0-3.6)
[2021-07-09 21:17] LABS: Urine Blood Negative (Negative); Urine Glucose Negative (Negative); Urine Protein Negative (Negative)
[2021-07-09 22:28] LABS: Magnesium 2.1
[2021-07-09 22:30] LABS: Urine Bacteria <20 /HPF (<20); Urine RBC NONE SEEN /HPF (NONE SEEN)
[2021-07-09] MEDS ORDERED: NITROGLYCERIN 0.4 MG/TAB SL PRN (23:17)
[2021-07-09] MEDS: NA CHLORIDE 0.9% 1,000 ML IV SCH (23:17)
[2021-07-09] MEDS ORDERED: ONDANSETRON 4 MG/2 ML VIAL IV PRN (23:17)
[2021-07-09] MEDS ORDERED: ACETAMINOPHEN 500 MG TAB PO PRN (23:17)
[2021-07-09] MEDS ORDERED: MORPHINE 2 MG/ML SYR IV PRN (23:17)
[2021-07-09] MEDS ORDERED: MORPHINE 4 MG/ML SYR ONE (23:28)
--- NOTE | 2021-07-09 23:48 | P.HP ---
Certification for Inpatient Patient admitted to: Observation With expected LOS: <2 Midnights Patient will require the following post-hospital care: None Practitioner: I am a practitioner with admitting privileges, knowledge of patient current condition, hospital course, and medical plan of care. Services: Services provided to patient in accordance with Admission requirements found in Title 42 Section 412.3 of the Code of Federal Regulations Patient History Date of Service: 07/09/21 Reason for admission: chest pain History of Present Illness: Ms. Zamora is a 60 yo F with HTN, rheumatoid arthritis, fibromyalgia, migraine disorder, history of meningioma who presents with five days of fatigue, diarrhea, and chest pain. She reports 8/10 squeezing sternal chest pressure with numbness in her left arm, fingers, and mouth occurring when she sits up and worse with ambulation lasting for a few minutes. With the episodes, she also reports labored breathing, lightheadness, dizziness, and palpitations. Over the past five days, she has also had diarrhea, weakness. She has had no appetite for the past month, worse over the past 5 days and he has not been drinking any fluids. Denies fever, nausea, and vomiting. She received the Pfizer vaccine. COVID test still pending. CXR IMPRESSION: No acute abnormalities displayed Allergies aspirin Allergy (Verified 07/09/21 23:16) Nausea/Vomiting erythromycin base Allergy (Verified 07/09/21 23:16) Nausea/Vomiting ondansetron [From Zofran] Allergy (Verified 07/09/21 23:16) Rash Penicillins Allergy (Verified 07/09/21 23:16) Rash povidone-iodine [From Betadine] Allergy (Verified 07/09/21 23:16) Shortness of breath - Past Medical/Surgical History -: bipolar disorder -: depression -: fibromyalgia -: RA -: HTN -: migraines -: meningioma -: tubal ligation -: tonsillecotmy -: cardiac ablation in 1991 - Family History Mother -: Diabetes Father -: Heart disease Brother -: Heart disease Notes: 1 brother from massive heart attack at 35, 2 brother with CAD, 3 brother with cardiac defect repaired as a child and T2DM - Social History Smoking Status: Never smoker Alcohol use: No CD- Drugs: No Caffeine use: Yes Place of Residence: Home Review of Systems 10-point ROS is otherwise unremarkable General: Weakness, Malaise Eyes: Unremarkable ENT: Unremarkable Respiratory: Shortness of Breath Cardiovascular: Chest Pain, Palpitations, Light Headedness Gastrointestinal: Diarrhea Genitourinary: Unremarkable Musculoskeletal: Neck Pain Integumentary: Unremarkable Neurological: Weakness, As per HPI Lymphatics: Unremarkable Physical Examination - Vital Signs Respirations: 13 Pulse Ox (%): 99 - Physical Exam General: Alert, In no apparent distress HEENT: Atraumatic, PERRLA, Mucous membr. moist/pink, EOMI, Sclerae nonicteric Neck: Supple, 2+ carotid pulse no bruit, No LAD, Without JVD or thyroid abnormality Respiratory: Clear to auscultation bilaterally, Normal air movement Cardiovascular: No edema, Regular rate/rhythm, Normal S1 S2 Gastrointestinal: Normal bowel sounds, No tenderness Musculoskeletal: No tenderness Integumentary: No rashes Neurological: Normal speech, Normal strength at 5/5 x4 extr, Normal tone, Normal affect Lymphatics: No axilla or inguinal lymphadenopathy - Studies Laboratory Data (last 24 hrs) 07/09/21 19:00: APTT 31.6 07/09/21 19:00: Amylase 60, Lipase 140 07/09/21 18:40: PT 11.8, INR 1.03 07/09/21 18:40: WBC 10.80, Hgb 15.7 H, Hct 48.0 H, Plt Count 336 07/09/21 18:40: Sodium 139, Potassium 3.7, BUN 6 L, Creatinine 0.97, Glucose 100, Magnesium 2.1, Total Bilirubin 0.4, AST 16, ALT 24, Alkaline Phosphatase 139 H Assessment and Plan - Problems (Diagnosis) (1) Chest pain Current Visit: Yes Status: Acute Qualifiers: Chest pain type: unspecified Qualified Code(s): R07.9 - Chest pain, unspecified (2) HTN (hypertension) Current Visit: Yes Status: Chronic Qualifiers: Hypertension type: primary hypertension Qualified Code(s): I10 - Essential (primary) hypertension (3) Diarrhea Current Visit: Yes Status: Acute Qualifiers: Diarrhea type: unspecified type Qualified Code(s): R19.7 - Diarrhea, unspecified (4) Dehydration Current Visit: Yes Status: Acute - Plan on tele, trend troponins, repeat EKG lipid and thyroid levels pending daily ASA, BB, statin, prn morphine and nitroglycerin stool cultures pending continue IV fluid hydration reconcile and continue home medications DVT ppx Discharge Plan: Home Plan to discharge in: 24 Hours - Advance Directives Does patient have a Living Will: No Does patient have a Durable POA for Healthcare: No - Code Status/Comfort Care Code Status Assessed: Yes (full code ) Critical Care: No Time Spent Managing Pts Care (In Minutes): 70
[2021-07-10] MEDS ORDERED: PROMETHAZINE INJ 25 MG/ML AMP IV PRN (00:20)
[2021-07-10] MEDS ORDERED: PROMETHAZINE INJ 25 MG/ML AMP ONE (00:38)
[2021-07-10 01:55] VITALS: BMI 31.8
[2021-07-10 04:34] LABS: Absolute Lymphocytes (CBC) 2.9 K/uL (0.7-4.9); Lymphocytes % 28.4 % (15.3-44.8); MPV 8.3 fL (7.6-11.3); RBC Red Blood Cell Count 4.82 M/uL (3.86-4.86)
[2021-07-10] MEDS ORDERED: METOPROLOL TAR 25 MG TAB ONE ×2 (04:46→06:27)
[2021-07-10 05:34] LABS: Albumin 3.1 g/dL (3.4-5.0); Bilirubin Total 0.4 mg/dL (0.2-1.0); Phosphorus 3.1 mg/dL (2.5-4.9); Potassium 3.4 mmol/L (3.5-5.1); Protein, Total 6.5 g/dL (6.4-8.2)
[2021-07-10 05:38] LABS: Thyroid Stimulating Hormone 4.25 uIU/mL (0.360-3.740)
[2021-07-10] MEDS: METOPROLOL TAR 25 MG TAB PO SCH ×2 (06:00→18:00)
[2021-07-10] MEDS ORDERED: POTASSIUM 25 MEQ EFFERV TAB PO ONE (06:15)
[2021-07-10] MEDS ORDERED: POTASSIUM 25 MEQ EFFERV TAB ONE (06:19)
--- NOTE | 2021-07-10 08:57 | EKG ---
Test Date: 2021-07-10 Test Time: 07:05:49 Platinumsmith: NADIR MEASUREMENT RESULTS: Intervals: Rate: 68 [place]: 196 QRSD: 84 QT: 414 QTc: 440 [place]: P: 37 [place]: 196 QRS: -8 T: 48 INTERPRETIVE STATEMENTS: Normal sinus rhythm Normal ECG Compared to ECG 07/09/2021 18:09:45 Left anterior fascicular block no longer present Myocardial infarct finding no longer present Electronically Signed On 07-10-21 08:57:13 CORPORATE LEGAL MANAGER by Lawrence Pizarro
--- NOTE | 2021-07-10 08:58 | EKG ---
Test Date: 2021-07-09 Test Time: 18:09:45 Building Services Supervisor: MEASUREMENT RESULTS: Intervals: Rate: 92 [place]: 172 QRSD: 80 QT: 340 QTc: 420 [place]: P: 49 [place]: 172 QRS: -53 T: 43 INTERPRETIVE STATEMENTS: Normal sinus rhythm Left anterior fascicular block Cannot rule out Anterior infarct, age undetermined Abnormal ECG No previous ECG available for comparison Electronically Signed On 07-10-21 08:57:25 TIMBER REPAIRER by Lawrence Pizarro
[2021-07-10] MEDS: ASPIRIN EC 81 MG TAB PO SCH (09:00)
[2021-07-10] MEDS ORDERED: ENOXAPARIN 40 MG/0.4 ML SQ SCH (09:00)
[2021-07-10] MEDS: NA CHLORIDE 0.9% 1,000 ML IV SCH ×2 (09:17→09:36)
[2021-07-10] MEDS: ENOXAPARIN 40 MG/0.4 ML SQ SCH (09:36)
[2021-07-10] MEDS ORDERED: POTASSIUM CL SA 10 MEQ TAB PO ONE (12:23)
--- NOTE | 2021-07-10 15:19 | RAD REPORT ---
EXAM DESCRIPTION: CT - Abdomen Pelvis Wo Contrast - 07/10/2021 2:41 pm CLINICAL HISTORY: pain; discomfort COMPARISON: Abdomen Pelvis Wo Contrast dated 05/10/2021 TECHNIQUE: Axial [address] imaging of the abdomen and pelvis was performed without IV contrast. No IV contrast was given because of allergy, abnormal renal function, patient refusal or physician re quest. No oral contrast administered. All CT scans are performed using dose optimization technique as appropriate and may include automated exposure control or mA/KV adjustment according to patient size. FINDINGS: No suspicious findings in the lung bases. The liver, spleen and pancreas show no suspicious focal findings on non-contrast imaging. Liver atten uation is borderline for fatty infiltration. Small accessory splenic nodules present. Gallbladder and biliary tree are also without suspicious finding. No hydronephrosis or suspicious renal mass. No significant adrenal finding. Isodense renal masses an d pyelonephritis cannot be excluded in the absence of IV contrast. The urinary bladder is without sig nificant finding. Uterus and ovaries show no suspicious findings. No dilated bowel loops or bowel wall thickening. No appendicitis findings. No active GI process seen. No free air, free fluid or inflammatory stranding in the peritoneal or retroperitoneal spaces. Punct ate air in the right lower quadrant subcutaneous fat is presumed to be from medication injection. No hernia, mass or bulky lymphadenopathy. No suspicious bony findings. IMPRESSION: Non-contrast enhanced CT abdomen and pelvis imaging show no significant or suspicious fi nding. Full assessment is limited is the absence of IV contrast.
[2021-07-10] MEDS: LITHIUM CARBONATE 300 MG CAP PO SCH (20:15)
[2021-07-10] MEDS ORDERED: ATORVASTATIN 40 MG TAB PO SCH (21:00)
[2021-07-10] MEDS ORDERED: TOPIRAMATE 100 MG TAB PO SCH (21:00)
[2021-07-10] MEDS ORDERED: MIRTAZAPINE 15 MG TAB PO SCH (21:00)
[2021-07-11] VITALS: O2SAT 98
[2021-07-11] MEDS: NA CHLORIDE 0.9% 1,000 ML IV SCH ×2 (00:29→09:52)
[2021-07-11] MEDS: METOPROLOL TAR 25 MG TAB PO SCH (05:30)
[2021-07-11] MEDS ORDERED: PANTOPRAZOLE 40MG TABLET PO SCH (06:30)
[2021-07-11 07:05] LABS: Potassium 3.8 mmol/L (3.5-5.1)
[2021-07-11] MEDS ORDERED: DULOXETINE 30 MG CAP PO SCH (09:00)
[2021-07-11] MEDS ORDERED: ARIPiprazole 5 MG TAB PO SCH (09:00)
[2021-07-11] MEDS: ASPIRIN EC 81 MG TAB PO SCH (09:00)
[2021-07-11] MEDS: ENOXAPARIN 40 MG/0.4 ML SQ SCH (09:51)
[2021-07-11] MEDS: LITHIUM CARBONATE 300 MG CAP PO SCH (09:51)
--- NOTE | 2021-07-11 10:04 | P.PN ---
Subjective Date of Service: 07/10/21 STILL HAVING PAIN; REPEAT IMAING AND POSSIBLE DC TODAY Review of Systems 10-point ROS is otherwise unremarkable Physical Examination - Vital Signs Temperature: 97.0 F Blood Pressure: 118/63 Pulse: 59 Respirations: 20 Pulse Ox (%): 98 - Physical Exam General: Alert, In no apparent distress, Oriented x3 Respiratory: Clear to auscultation bilaterally, Normal air movement Cardiovascular: Regular rate/rhythm, Normal S1 S2 Gastrointestinal: Normal bowel sounds, Soft and benign, Non-distended, No tenderness Musculoskeletal: No clubbing, No swelling, No tenderness Neurological: Cranial nerves 3-12 intact - Studies Laboratory Data (last 24 hrs) 07/10/21 11:30: Potassium 4.0 07/10/21 03:55: Magnesium 2.0 Microbiology Data (last 24 hrs): 07/09/21 19:16 Blood - Blood Blood Culture Gram Stain - Final Medications List Reviewed: Yes Assessment & Plan - Problems (Diagnosis) (1) Chest pain Current Visit: Yes Status: Acute Qualifiers: Chest pain type: unspecified Qualified Code(s): R07.9 - Chest pain, unspecified (2) Dehydration Current Visit: Yes Status: Acute (3) Diarrhea Current Visit: Yes Status: Acute Qualifiers: Diarrhea type: unspecified type Qualified Code(s): R19.7 - Diarrhea, unspecified (4) HTN (hypertension) Current Visit: Yes Status: Chronic Qualifiers: Hypertension type: primary hypertension Qualified Code(s): I10 - Essential (primary) hypertension - Plan PLAN 1. CT IMAGING 2. PAIN CONTROL 3. RULE OUT CAD 4. LAXATIVES Discharge Plan: Home Plan to discharge in: Greater than 2 days - Advance Directives Does patient have a Living Will: No Does patient have a Durable POA for Healthcare: No - Code Status/Comfort Care Code Status Assessed: Yes Code Status: Full Code Critical Care: No Time Spent Managing PTS Care (In Minutes): 35
[2021-07-11] MEDS ORDERED: POTASSIUM CL SA 10 MEQ TAB PO ONE (13:00)
[2021-07-11 17:40] VITALS: BP 111/59; TEMP 97.6
== END 2021-07-11 17:56 | disposition home or self-care (01) | DRG 313 ==
LOC: ER 18:01 → ERHOLD 21:53 → 2ND 07-10 08:13 → OBSVTOIN 07-10 19:34
PROVIDERS: ADMIT Hospitalist; ATTEND Hospitalist
DX: R07.9 Chest pain, unspecified (principal); M79.7 Fibromyalgia; M06.9 Rheumatoid arthritis, unspecified; E86.0 Dehydration; I10 Essential (primary) hypertension; E66.9 Obesity, unspecified; R19.7 Diarrhea, unspecified; Z88.1 Allergy status to other antibiotic agents; Z88.0 Allergy status to penicillin; Z68.31 Body mass index [BMI] 31.0-31.9, adult; Z88.8 Allergy status to other drugs, medicaments and biological substances; Z91.048 Other nonmedicinal substance allergy status; Z98.51 Tubal ligation status; Z79.82 Long term (current) use of aspirin; Z79.899 Other long term (current) drug therapy; Z20.822 Contact with and (suspected) exposure to COVID-19
CPT/HCPCS: 36415; 70450; 71045; 72125; 74176; 80048; 80053; 80061; 80076; 81003; 81015; 82150; 82550; 82553; 82947; 83605; 83690; 83735; 83880; 84100; 84132; 84145; 84439; 84443; 84484; 85025; 85610; 85730; 87040; 87077; 87186; 87205; 93005; 99285; G0378; J1650; J2550; J7030; U0003

== ENCOUNTER 2021-11-20 18:39 | Emergency (ER) | payer SELFPAY ==
--- OUTSIDE RECORDS SUMMARY | 2021-11-20 18:43 | XMS REPORT | Continuity of Care Document ---
:1960 Author Organization [facility] t Address [address] [place] [address] Care Team Providers Name Role Phone BRYAN, O Primary Care Physician Unavailable Anju GARCIA Attending Clinician Unavailable Shandra FOLEY Attending Clinician Unavailable HEBERT Attending Clinician Unavailable Etta FRY Attending Clinician Unavailable ACACIA Attending Clinician Unavailable MILO Attending Clinician Unavailable Prema ADAMS Attending Clinician Unavailable RADHA H Attending Clinician Unavailable LOGAN Attending Clinician Unavailable ELIS Attending Clinician Unavailable RAISSA CHAMORRO Attending Clinician Unavailable Tess PADILLA Attending Clinician Unavailable Prema DUFFY Attending Clinician Unavailable ROHIT Attending Clinician Unavailable Victor Manuel CURTIS Attending Clinician Unavailable BARBRA Attending Clinician Unavailable Shandra REBOLLEDO Attending Clinician Unavailable Tess WARD Attending Clinician Unavailable Justice SADLER Attending Clinician Unavailable Anju OROZCO Attending Clinician Unavailable HEBERT Attending Clinician Unavailable Elfego LIM Attending Clinician Unavailable Efra ESPARZA Attending Clinician Unavailable Angela SANCHEZ Attending Clinician Unavailable Anju MANN Attending Clinician Unavailable JUNE Attending Clinician Unavailable Efra ESPARZA Attending Clinician Unavailable Shandra MARISCAL Attending Clinician Unavailable Melba PICHARDO Attending Clinician Unavailable Maricruz MICHEL Attending Clinician Unavailable Shantel ARTEAGA Admitting Clinician Unavailable Payers Payer Name Policy Type Policy Number Effective Date Expiration Date Carlos HUNT [id number] 6701-05-01 2021 PLANNING INDIGENT 00:00:00 00:00:00 Problems This patient has no known problems. Allergies, Adverse Reactions, Alerts Allergy Allergy Status Severity Reaction(s) Onset Inactive Treating Comm ents Source Name Type Date Date Clinician POVIDONE Allergy Active 2020-[address] [facility] IODINE All[facility] ONDANSET Allergy Active [facility]EL [facility]CL [facility] PENICILL Allergy Active [facility] INS [facility] ASPIRIN [facility] AZITHROM Allergy Active [facility] YCIN 5-[facility] NO KNOWN Allergy Active [facility] Medications This patient has no known medications. Procedures This patient has no known procedures. Encounters Start End Encounter Admission Attending Care Care Encounter Source Date/Time Date/Time Type Type Clinicians Facility Department ID 2022-01-25 2022-01-25 Outpatient GUNJAN GARCIA [facility] [id number] [place] 00:00:00 00:00:00 [facility] 2021-12-25 2021-12-25 Outpatient [facility] [id number] [place] 00:00:00 00:00:00 [facility] 2021-11-29 2021-11-29 Outpatient GUNJAN GARCIA [facility] [id number] [place] 00:00:00 00:00:00 [facility] 2021-11-29 2021-11-29 [facility] [id number] [place] 00:00:00 00:00:00 SARY Aponte 2021-11-28 2021-11-28 [facility] [id number] [place] 00:00:00 00:00:00 MELONIE [facility] 2021-11-28 2021-11-28 Outpatient [facility] [id number] [place] 00:00:00 00:00:00 [facility] 2021-11-21 2021-11-21 [facility] [id number] [place] 00:00:00 00:00:00 LEAH [facility] 2021-11-21 2021-11-21 Outpatient [facility] [id number] [place] 00:00:00 00:00:00 [facility] 2021-11-21 2021-11-21 Outpatient [facility] [id number] [place] 00:00:00 00:00:00 [facility] 2021-10-30 2021-10-30 Outpatient KYUNG ROGER [facility] [id number] [place] 00:00:00 00:00:00 [facility] 2021-10-27 2021-10-27 Outpatient MILO, [facility] [id number] [place] 16:33:16 17:19:46 [facility] 2021-10-12 2021-10-12 [facility] [id number] [place] 00:00:00 00:00:00 [facility] 2021-10-11 2021-10-11 Outpatient ROSSIR, [facility] [id number] [place] 07:19:10 16:13:23 [facility] 2021-09-26 2021-09-26 Outpatient LISANDRA, [facility] [id number] [place] 07:17:53 16:00:43 [facility] 2021-09-25 2021-09-25 Outpatient [facility] [id number] [place] 07:17:04 14:53:45 [facility] 2021-09-19 2021-09-19 Outpatient [facility] [id number] [place] 00:00:00 00:00:00 [facility] 2021-09-14 2021-09-14 Outpatient [facility] [id number] [place] 00:00:00 00:00:00 [facility] 2021-09-14 2021-09-14 Outpatient [facility] [id number] [place] 00:00:00 00:00:00 [facility] 2021-09-11 2021-09-11 Outpatient HEBERT, [facility] [id number] [place] 00:00:00 00:00:00 [facility] 2021-09-10 2021-09-10 Outpatient BRYAN, [facility] [id number] [place] 06:54:17 08:30:59 [facility] 2021-09-10 2021-09-10 Outpatient ROSSIR, [facility] [id number] [place] 00:00:00 00:00:00 [facility] 2021-09-07 2021-09-07 [facility] [id number] [place] 08:47:04 23:59:00 [facility] 2021-09-05 2021-09-05 Outpatient [facility] [id number] [place] 07:29:59 15:36:20 [facility] 2021-08-31 2021-08-31 Outpatient [facility] [id number] [place] 00:00:00 00:00:00 [facility] 2021-08-24 2021-08-24 [facility] [id number] [place] 07:09:19 09:06:06 [facility] 2021-08-22 2021-08-22 Outpatient [facility] [id number] [place] 07:25:27 15:54:19 [facility] 2021-08-16 2021-08-20 Inpatient COVERDALE, [facility] [id number] [place] 23:24:00 17:15:00 [facility] 2021-08-16 2021-08-16 [facility] [id number] [place] 16:43:00 23:21:00 [facility] 2021-08-16 2021-08-16 Emergency [facility] [id number] [place] 16:46:57 16:54:41 [facility] 2021-08-16 2021-08-16 Emergency 1 [facility] [id number] [place] 16:43:00 16:43:00 [facility] 2021-08-15 2021-08-15 [facility] [id number] [place] 07:49:58 16:16:03 [facility] 2021-08-09 2021-08-09 [facility] [id number] [place] 09:21:30 09:27:22 [facility] 2021-08-09 2021-08-09 [facility] [id number] [place] 00:00:00 00:00:00 [facility] 2021-08-09 2021-08-09 [facility] [id number] [place] 00:00:00 00:00:00 [facility] 2021-07-31 2021-07-31 [facility] [id number] [place] 10:11:03 10:48:20 [facility] 2021-07-12 2021-07-12 Outpatient BRYAN, [facility] [id number] [place] 13:38:41 13:45:20 [facility] 2021-07-12 2021-07-12 [facility] [id number] [place] 00:00:00 00:00:00 [facility] 2021-07-11 2021-07-11 Outpatient LISANDRA, [facility] [id number] [place] 07:24:45 14:28:51 [facility] 2021-06-20 2021-06-20 Outpatient HEBERT, [facility] [id number] [place] 07:13:54 15:25:39 [facility] 2021-06-15 2021-06-15 Outpatient [facility] [id number] [place] 00:00:00 00:00:00 [facility] 2021-05-31 2021-05-31 Outpatient [facility] [id number] [place] 00:00:00 00:00:00 [facility] 2021-05-18 2021-05-18 Outpatient [facility] [id number] [place] 00:00:00 00:00:00 [facility] 2021-05-11 2021-05-12 [id number] [facility] 07:46[facility]00 15:14:00 [facility] 2021-05-11 2021-05-11 [facility] [id number] [place] 07:14:31 07:14:31 [facility] 2021-05-02 2021-05-02 Outpatient LISANDRA, [facility] [id number] [place] 07:29:11 14:00:13 [facility] 2021-05-01 2021-05-01 Outpatient VALERIE, [facility] [id number] [place] 07:59:05 09:12:17 [facility] 2021-04-20 2021-04-20 Outpatient [facility] [id number] [place] 07:21:09 10:23:16 [facility] 2021-04-19 2021-04-19 Outpatient CLIVE, [facility] [id number] [place] 08:57:09 12:02:19 [facility] 2021-04-12 2021-04-12 [facility] [id number] [place] 11:07:25 11:35:47 [facility] 2021-04-12 2021-04-12 Outpatient HEBERT, [facility] [id number] [place] 10:02:46 10:42:29 [facility] 2021-04-10 2021-04-10 Outpatient ROHIT, [facility] [id number] [place] 14:45:29 15:31:40 [facility] 2021-04-05 2021-04-05 Outpatient [facility] [id number] [place] 07:35:17 10:25:03 [facility] 2021-04-03 2021-04-03 Outpatient [facility] [id number] [place] 00:00:00 00:00:00 [facility] 2021-04-02 2021-04-02 Outpatient [facility] [id number] [place] 16:13:09 16:18:39 [facility] 2021-04-02 2021-04-02 [facility] [id number] [place] 00:00:00 00:00:00 [facility] 2021-03-27 2021-03-27 Outpatient [facility] [id number] [place] 00:00:00 00:00:00 [facility] 2021-03-27 2021-03-27 Outpatient [facility] [id number] [place] 00:00:00 00:00:00 [facility] 2021-03-26 2021-03-26 Outpatient [facility] [id number] [place] 00:00:00 00:00:00 [facility] 2021-03-22 2021-03-22 Outpatient BLASSINGAME [facility] [id number] [place] 05:49:17 14:32:38 , MILTON [facility] 2021-03-20 2021-03-20 Emergency [facility] [id number] [place] 13:51:00 22:32:00 [facility] 2021-03-20 2021-03-20 Emergency [facility] [id number] [place] 17:35:21 17:35:21 [facility] 2021-03-20 2021-03-20 [id number] [place] 13:51:00 13:51:00 [facility] 2021-03-20 2021-03-20 Outpatient [facility] [id number] [place] 11:20:11 11:43:56 [facility] 2021-03-19 2021-03-19 Outpatient [facility] [id number] [place] 09:19:44 10:13:10 [facility] 2021-03-14 2021-03-14 [facility] [id number] [place] 07:23:11 14:01:19 [facility] 2021-03-09 2021-03-09 [facility] [id number] [place] 13:50:05 13:54:41 [facility] 2021-03-09 2021-03-09 [facility] [id number] [place] 00:00:00 00:00:00 [facility] 2021-03-08 2021-03-08 Outpatient [facility] [id number] [place] 16:09:53 17:01:12 [facility] 2021-03-08 2021-03-08 [facility] [id number] [place] 07:12:11 09:08:51 [facility] 2021-03-08 2021-03-08 Outpatient [facility] [id number] [place] 00:00:00 00:00:00 [facility] 2021-03-07 2021-03-07 Outpatient LISANDRA, [facility] [id number] [place] 07:28:41 17:06:28 [facility] 2021-02-16 2021-02-28 [facility] [id number] [place] 17:54:00 18:00:00 [facility] 2021-02-27 2021-02-27 Outpatient [facility] [id number] [place] 13:47:56 23:59:00 [facility] 2021-02-20 2021-02-20 Outpatient [facility] [id number] [place] 14:56:30 23:59:00 [facility] 2021-02-15 2021-02-16 Emergency [facility] [id number] [place] 18:43:00 17:37:00 [facility] 2021-02-15 2021-02-15 Emergency [facility] [id number] [place] 18:43:00 18:43:00 [facility] 2021-02-15 2021-02-15 Outpatient [facility] [id number] [place] 07:30:09 14:05:13 [facility] 2021-02-12 2021-02-12 [facility] [id number] [place] 00:00:00 00:00:00 [facility] 2021-02-01 2021-02-01 [facility] [id number] [place] 00:00:00 00:00:00 [facility] 2021-01-19 2021-01-19 [facility] [id number] [place] 09:16:35 23:59:00 [facility] 2021-01-19 2021-01-19 Outpatient DOROTEO, [facility] [id number] [place] 08:42:18 09:33:54 [facility] 2021-01-16 2021-01-16 Outpatient [facility] [id number] [place] 08:13:29 08:41:37 [facility] 2021-01-15 2021-01-15 Outpatient [facility] [id number] [place] 00:00:00 00:00:00 [facility] 2021-01-10 2021-01-10 Outpatient BRYAN, [facility] [id number] [place] 07:38:08 13:33:18 [facility] 2021-01-10 2021-01-10 Outpatient LISANDRA, [facility] [id number] [place] 00:00:00 00:00:00 [facility] 2021-01-03 2021-01-03 Outpatient PAM, [facility] [id number] [place] 08:13:41 10:31:26 [facility] 2020-12-28 2020-12-28 Outpatient BRYAN, [facility] [id number] [place] 06:48:31 10:43:42 [facility] 2020-12-20 2020-12-20 Outpatient ROSSIR, [facility] [id number] [place] 00:00:00 00:00:00 [facility] 2020-12-19 2020-12-19 Outpatient ROSSIR, [facility] [id number] [place] 00:00:00 00:00:00 [facility] 2020-12-05 2020-12-05 Outpatient ZAHIR, [facility] [id number] [place] 00:00:00 00:00:00 [facility] 2020-11-30 2020-11-30 Outpatient PROPHET, [facility] [id number] [place] 00:00:00 00:00:00 [facility] 2020-11-24 2020-11-24 Outpatient ISAIAS, [facility] [id number] [place] 10:32:24 10:41:06 [facility] 2020-11-24 2020-11-24 Outpatient [facility] [id number] [place] 00:00:00 00:00:00 [facility] 2020-11-24 2020-11-24 Outpatient ZAHIR, [facility] [id number] [place] 00:00:00 00:00:00 [facility] 2020-11-23 2020-11-23 Outpatient LAURA, [facility] [id number] [place] 07:14:19 15:45:33 [facility] 2020-11-22 2020-11-22 Outpatient MACKENZIE, [facility] [id number] [place] 00:00:00 00:00:00 [facility] 2020-11-22 2020-11-22 Outpatient ROLANDREGINALDJAZZMINE, [facility] [id number] [place] 00:00:00 00:00:00 [facility] 2020-11-22 2020-11-22 Outpatient [facility] [id number] [place] 00:00:00 00:00:00 [facility] 2020-11-17 2020-11-17 Outpatient JUNE, [facility] [id number] [place] 08:37:17 09:46:27 [facility] 2020-11-16 2020-11-16 Outpatient [facility] [id number] [place] 00:00:00 00:00:00 [facility] 2020-11-09 2020-11-09 Outpatient ROSSIR, [facility] [id number] [place] 07:18:58 14:12:04 [facility] 2020-11-08 2020-11-08 Outpatient ZAHIR, [facility] [id number] [place] 07:20:02 07:20:02 [facility] 2020-11-07 2020-11-07 Outpatient [facility] [id number] [place] 08:56:51 10:41:20 [facility] 2020-11-01 2020-11-01 Outpatient SULTANAHIR, [facility] [id number] [place] 12:12:56 12:18:43 [facility] 2020-11-01 2020-11-01 Outpatient ZAHIR, [facility] [id number] [place] 00:00:00 00:00:00 [facility] 2020-10-27 2020-10-27 Outpatient ZAHIR, [facility] [id number] [place] 00:00:00 00:00:00 [facility] 2020-10-25 2020-10-25 Outpatient SULTANAHIR, [facility] [id number] [place] 10:22:05 23:59:00 [facility] 2020-10-25 2020-10-25 [facility] [id number] [place] 12:07:10 14:55:26 [facility] 2020-10-25 2020-10-25 Outpatient ZAHIR, [facility] [id number] [place] 07:22:11 07:22:11 [facility] 2020-10-19 2020-10-19 Outpatient ESPARZA, [facility] [id number] [place] 09:15:23 09:42:11 [facility] 2020-10-15 2020-10-16 Emergency HOOT, [facility] [id number] [place] 17:22:00 02:18:00 [facility] 2020-10-15 2020-10-15 Emergency KYLEE, [facility] [id number] [place] 18:12:53 18:12:53 [facility] 2020-10-11 2020-10-11 Outpatient ZAHIR, [facility] [id number] [place] 08:42:57 08:51:00 [facility] 2020-10-11 2020-10-11 Outpatient ZAHIR, [facility] [id number] [place] 00:00:00 00:00:00 [facility] 2020-10-10 2020-10-10 Outpatient ZAHIR, [facility] [id number] [place] 07:16:46 10:17:40 [facility] 2020-10-03 2020-10-04 Emergency [facility] [id number] [place] 16:51:00 00:44:00 [facility] Results Test Description Test Time Test Comments Results Result Comments Source SARS-CoV-2 RNA Resp Ql ALEJANDRA+probe 2021-08-16 21:53:22 Test Item Value Reference Range Interpretation Comme nts Hospitalized? (test code = No 69107-6) ICU? (test code = 11868-1) No Symptomatic as defined by CDC? No (test code = 21032-4) Employed in Healthcare? (test No code = 64377-5) Resident in a congregate care No setting (including nursing homes, residential care for people with intellectual and developmental disabilities, psychiatric treatment facilities, group homes, board and care homes, homeless fpc, foster care or other): (test code = 20598-9) ? (test code = No 32834-9) SARS-CoV-2 RNA Resp Ql NOT DETECTED Not Detected INTER PRETATION: No ALEJANDRA+probe (test [place] = [place] [address]-6) SARS-CoV-2 James navirus (COVID-19) were present in this patient's sample by this test. A no t detected result does not exclude the possibility of active infection with this virus due to other fa ctors that may affect the results such as a poorly col lected sample, viral t iters below the limit of de tection of the assay, and the infrequent poss ibility of inhibitors in t he sample. This result ed uld be interpreted in conjunction with clinical, radiographic, a nd other laboratory find ings and should not be u sed as the sole indicator of active infection with SARS-CoV-2 Coronavirus ([place] VID-19). COMMENT: This cherry real-time reverse transcriptase polymerase chain reaction (RT-PCR) test rapidly detects SARS-CoV-2 (COVID-19) virus from nasopharyngeal and nasal swab specimens. In accordance with the FDA's guidance document "Policy for Diagnostic Tests for Coronavirus Disease-2019 during the Public Health Emergency", this test was developed, and its performance characteristics were verified by the [facility] molecular diagnostics laboratory and is authorized for clinical diagnostic use. This laboratory is certified under the Clinical Laboratory Improvement Amendments (CLIA) as qualified to perform high complexity clinical laboratory testing.TISSUE [id number] 16:27:22Surgical Pathology Report Case: [id number] Authorizing Provider: Zuleyma Mcgrath, Collected: 05/11/2021 03:26 PM OrderingLocation: [address] Received: 05/14/2021 08:33 AM Service Pathologist: Ada Jerry MD Specimens: A) -Biopsy, Gastric, Random Gastric BX B) - Polyp, Gastric, Polyp Bx A. STOMACH, RANDOM, BIOPSY- CHRONIC INACTIVE GASTRITIS, MILD- NO INTESTINAL METAPLASIA, DYSPLASIA OR CARCINOMA IDENTIFIED- NO HELICOBACTER PYLORI LIKE ORGANISMS IDENTIFIED ON WARTHIN STARRY STAINB. STOMACH POLYP, POLYPECTOMY- FUNDIC GLAND POLYP- NO HELICOBACTER PYLORI LIKE ORGANISMS SEEN ON WARTHIN STARRY STAIN Signing Pathologist Direct Phone Line: [phone] signed by Ada Jerry MD on 05/14/2021 at 4:27 [id number] X 2, [id number] X 2HematemesisA. Gastric, random biopsyB. Gastric, polypA. Received in formalin labeled with the patient's name, medical record number and "biopsy, gastric" are 3 damon tissue fragments ranging from 0.3 to 0.5 cm in greatest dimension. The specimen is filteredand submitted in toto in A1.B. Received in formalin labeled with the patient's name, medical record number and "polyp, gastric" is a 0.3 x 0.2 x 0.2 cm damon tissue fragment. The specimen is filtered and submitted in toto in B1.Enoch Armstrongformed.The interpretation of this case included the use of immunohistochemistry or special stains.Control Slides Examined: In-house known positive controls were evaluated along with the test tissue. These control slides run alongside of the patients sample show appropriate staining. Internal positive and negative controls when available are evaluated Immunohistochemistry technical testing was performed at [facility], Pathology Laboratory where it was developed and its performance characteristics were determined. It has not been cleared or approved by the U.S. Food and Drug Administration. The FDA has determined that such clearance or approval is not necessary. The test is used for clinical purposes. It should not be regarded as investigational or for research. This laboratory is certified under the Clinical Laboratory Improvement Amendments of 1988 (CLIA-88) as qualified to perform high complexity clinical laboratory testing.[facility], Department of Pathology, [address] [place], [place] [address], [facility] of [facility], [address] [place] [address], [facility], Department of [facility]ology, [address] [place], [place] [address], FPDBAKSXUG AND [id number] 13:08:19 Test Item Value Reference Range Interpretation Comments HEMOGLOBIN (BEAKER) (test code = 12.5 GM/DL 11.2-15.7 410) HEMATOCRIT (BEAKER) (test code = 42.5 % 34.1-44.9 411) [employer] Supervisor ID - [id number] FUNCTION [id number] 07:06:01 Test Item Value Reference Range Interpretation Comments TOTAL PROTEIN (BEAKER) (test code = 5.9 gm/dL 6.0-8.3 L 770) ALBUMIN (BEAKER) (test code = 1145) 3.5 g/dL 3.5-5.0 BILIRUBIN TOTAL (BEAKER) (test code 0.4 mg/dL 0.2-1.2 = 377) BILIRUBIN DIRECT (BEAKER) (test 0.2 mg/dL 0.1-0.5 code = 706) ALKALINE PHOSPHATASE (BEAKER) (test 93 U/L 40-150 code = 346) AST (SGOT) (BEAKER) (test code = 17 U/L 5-34 353) ALT (SGPT) (BEAKER) (test code = 16 U/L 6-55 347) [employer] Supervisor ID - MARNIE [id number] 07:06:00 Test Item Value Reference Range Interpretation Comments MAGNESIUM (BEAKER) (test code = 2.1 mg/dL 1.6-2.6 627) [employer] Supervisor ID - MARNIE [id number] 07:06:00 Test Item Value Reference Range Interpretation Comments PHOSPHORUS (BEAKER) (test code = 2.9 mg/dL 2.3-4.7 604) [employer] Supervisor ID - MARNIE MBASIC METABOLIC [id number] 07:05:59 Test Item Value Reference Range Interpretation Comments SODIUM (BEAKER) 144 meq/L 136-145 (test code = 381) POTASSIUM (BEAKER) 3.9 meq/L 3.5-5.1 (test code = 379) CHLORIDE (BEAKER) 114 meq/L 98-107 H (test code = 382) CO2 (BEAKER) (test 26 meq/L 22-29 code = 355) BLOOD UREA NITROGEN 6 mg/dL 7-21 L (BEAKER) (test code = 354) CREATININE (BEAKER) 0.77 mg/dL 0.57-1.25 (test code = 358) GLUCOSE RANDOM 84 mg/dL 70-105 (BEAKER) (test code = 652) CALCIUM (BEAKER) 8.7 mg/dL 8.4-10.2 (test code = 697) EGFR (BEAKER) (test 77 mL/min/1.73 ESTIMA HANNAH GFR IS code = 1092) sq m NOT ACCURATE CREATININE CLEARANCE IN PREDICTING GLOMERULAR FILTRATION RATE . ESTIMATED GFR I S NOT APPLICABLE FOR DIALYSIS PATIEN TS. [employer] Supervisor ID - MARNIE MPROTHROMBIN [id number] 06:53:12 Test Item Value Reference Range Interpretation Comments PROTIME (BEAKER) 12.8 seconds 11.9-14.2 (test code = 759) INR (BEAKER) (test 0.98 See_Comment [Automat ed message] code = 370) The system Viz[employer] generated this result transmitted ref erence range: <=5.90. The reference range was not used to int erpret this result as normal/abnormal . RECOMMENDED COUMADIN/WARFARIN INR THERAPY RANGESSTANDARD DOSE: 2.0 - 3.0 Includes: PROPHYLAXIS forvenous thrombosis, systemic embolization; TREATMENT for venous thrombosis and/or pulmonary embolus.HIGH RISK: Target INR is 2.5-3.5 for patients with mechanical heart valves.CBC W/PLT COUNT & AUTO DIFFERENTIAL 2021-05-12 06:46:07 Test Item Value Reference Range Interpretation Comments WHITE BLOOD CELL COUNT (BEAKER) 9.3 K/ L 3.5-10.5 (test code = 775) RED BLOOD CELL COUNT (BEAKER) 4.29 M/ L 3.93-5.22 (test code = 761) HEMOGLOBIN (BEAKER) (test code = 12.7 GM/DL 11.2-15.7 410) HEMATOCRIT (BEAKER) (test code = 40.7 % 34.1-44.9 411) MEAN CORPUSCULAR VOLUME (BEAKER) 94.9 fL 79.4-94.8 H (test code = 753) MEAN CORPUSCULAR HEMOGLOBIN 29.6 pg 25.6-32.2 (BEAKER) (test code = 751) MEAN CORPUSCULAR HEMOGLOBIN CONC 31.2 GM/DL 32.2-35.5 L (BEAKER) (test code = 752) RED CELL DISTRIBUTION WIDTH 14.2 % 11.7-14.4 (BEAKER) (test code = 412) PLATELET COUNT (BEAKER) (test 302 K/CU MM 150-450 code = 756) MEAN PLATELET VOLUME (BEAKER) 10.2 fL 9.4-12.3 (test code = 754) NUCLEATED RED BLOOD CELLS 0 /100 WBC 0-0 (BEAKER) (test code = 413) NEUTROPHILS RELATIVE PERCENT 49 % (BEAKER) (test code = 429) LYMPHOCYTES RELATIVE PERCENT 36 % (BEAKER) (test code = 430) MONOCYTES RELATIVE PERCENT 11 % (BEAKER) (test code = 431) EOSINOPHILS RELATIVE PERCENT 4 % (BEAKER) (test code = 432) BASOPHILS RELATIVE PERCENT 1 % (BEAKER) (test code = 437) NEUTROPHILS ABSOLUTE COUNT 4.50 K/ L 1.56-6.13 (BEAKER) (test code = 670) LYMPHOCYTES ABSOLUTE COUNT 3.31 K/ L 1.18-3.74 (BEAKER) (test code = 414) MONOCYTES ABSOLUTE COUNT (BEAKER) 0.97 K/ L 0.24-0.36 H (test code = 415) EOSINOPHILS ABSOLUTE COUNT 0.41 K/ L 0.04-0.36 H (BEAKER) (test code = 416) BASOPHILS ABSOLUTE COUNT (BEAKER) 0.06 K/ L 0.01-0.08 (test code = 417) IMMATURE GRANULOCYTES-RELATIVE 0 % 0-1 PERCENT (BEAKER) (test code = 2801) PROTHROMBIN [id number] 10:13:30 Test Item Value Reference Range Interpretation Comments PROTIME (BEAKER) 13.3 seconds 11.9-14.2 (test code = 759) INR (BEAKER) (test 1.03 See_Comment [Automat ed message] code = 370) The system V[employer] generated this result transmitted ref erence range: <=5.90. The reference range was not used to int erpret this result as normal/abnormal . RECOMMENDED COUMADIN/WARFARIN INR THERAPY RANGESSTANDARD DOSE: 2.0 - 3.0 Includes: PROPHYLAXIS forvenous thrombosis, systemic embolization; TREATMENT for venous thrombosis and/or pulmonary embolus.HIGH RISK: Target INR is 2.5-3.5 for patients with mechanical heart valves.COMPREHENSIVE METABOLIC [id number] 10:12:29 Test Item Value Reference Range Interpretation Comments TOTAL PROTEIN 6.9 gm/dL 6.0-8.3 (BEAKER) (test code = 770) ALBUMIN (BEAKER) 4.0 g/dL 3.5-5.0 (test code = 1145) ALKALINE PHOSPHATASE 109 U/L 40-150 (BEAKER) (test code = 346) BILIRUBIN TOTAL 0.6 mg/dL 0.2-1.2 (BEAKER) (test code = 377) SODIUM (BEAKER) (test 143 meq/L 136-145 code = 381) POTASSIUM (BEAKER) 3.7 meq/L 3.5-5.1 (test code = 379) CHLORIDE (BEAKER) 111 meq/L 98-107 H (test code = 382) CO2 (BEAKER) (test 22 meq/L 22-29 code = 355) BLOOD UREA NITROGEN 8 mg/dL 7-21 (BEAKER) (test code = 354) CREATININE (BEAKER) 0.78 mg/dL 0.57-1.25 (test code = 358) GLUCOSE RANDOM 95 mg/dL 70-105 (BEAKER) (test code = 652) CALCIUM (BEAKER) 9.4 mg/dL 8.4-10.2 (test code = 697) AST (SGOT) (BEAKER) 17 U/L 5-34 (test code = 353) ALT (SGPT) (BEAKER) 17 U/L 6-55 (test code = 347) EGFR (BEAKER) (test 76 mL/min/1.73 ESTIMA HANNAH GFR IS code = 1092) sq m NOT ACCURATE CREATININE CLEARANCE IN PREDICTING GLOMERULAR FILTRATION RATE . ESTIMATED GFR I S NOT APPLICABLE FOR DIALYSIS PATIEN TS. [employer] Products Supervisor ID - DBCBC W/PLT COUNT & AUTO [id number] 09:45:23 Test Item Value Reference Range Interpretation Comments WHITE BLOOD CELL COUNT (BEAKER) 9.9 K/ L 3.5-10.5 (test code = 775) RED BLOOD CELL COUNT (BEAKER) 4.80 M/ L 3.93-5.22 (test code = 761) HEMOGLOBIN (BEAKER) (test code = 14.4 GM/DL 11.2-15.7 410) HEMATOCRIT (BEAKER) (test code = 44.5 % 34.1-44.9 411) MEAN CORPUSCULAR VOLUME (BEAKER) 92.7 fL 79.4-94.8 (test code = 753) MEAN CORPUSCULAR HEMOGLOBIN 30.0 pg 25.6-32.2 (BEAKER) (test code = 751) MEAN CORPUSCULAR HEMOGLOBIN CONC 32.4 GM/DL 32.2-35.5 (BEAKER) (test code = 752) RED CELL DISTRIBUTION WIDTH 14.0 % 11.7-14.4 (BEAKER) (test code = 412) PLATELET COUNT (BEAKER) (test 318 K/CU MM 150-450 code = 756) MEAN PLATELET VOLUME (BEAKER) 9.9 fL 9.4-12.3 (test code = 754) NUCLEATED RED BLOOD CELLS 0 /100 WBC 0-0 (BEAKER) (test code = 413) NEUTROPHILS RELATIVE PERCENT 53 % (BEAKER) (test code = 429) LYMPHOCYTES RELATIVE PERCENT 35 % (BEAKER) (test code = 430) MONOCYTES RELATIVE PERCENT 8 % (BEAKER) (test code = 431) EOSINOPHILS RELATIVE PERCENT 3 % (BEAKER) (test code = 432) BASOPHILS RELATIVE PERCENT 1 % (BEAKER) (test code = 437) NEUTROPHILS ABSOLUTE COUNT 5.22 K/ L 1.56-6.13 (BEAKER) (test code = 670) LYMPHOCYTES ABSOLUTE COUNT 3.46 K/ L 1.18-3.74 (BEAKER) (test code = 414) MONOCYTES ABSOLUTE COUNT (BEAKER) 0.83 K/ L 0.24-0.36 H (test code = 415) EOSINOPHILS ABSOLUTE COUNT 0.26 K/ L 0.04-0.36 (BEAKER) (test code = 416) BASOPHILS ABSOLUTE COUNT (BEAKER) 0.07 K/ L 0.01-0.08 (test code = 417) IMMATURE GRANULOCYTES-RELATIVE 0 % 0-1 PERCENT (BEAKER) (test code = 2801) HIV 1+2 Ab+HIV1 p24 Ag SerPl Ql [id number] 19:45:04 Test Item Value Reference Range Interpretation Comments HIV 1+2 Ab+HIV1 p24 Ag SerPl Ql IA NEGATIVE Negative (test code = 97680-1) SARS-CoV-2 RNA Resp Ql [id number] 04:09:13 Test Item Value Reference Range Interpretation Comments Hospitalized? (test No code = 86394-2) ICU? (test code = No 37761-5) Symptomatic as defined No by CDC? (test code = 83476-8) Employed in No Healthcare? (test code = 29505-4) Resident in a No congregate care setting (including nursing homes, residential care for people with intellectual and developmental disabilities, psychiatric treatment facilities, group homes, board and care homes, homeless fpc, foster care or other): (test code = 86500-1) ? (test code = No 96767-8) SARS-CoV-2 RNA Resp Ql NOT DETECTED Not Detected INTER PRETATION: No ALEJANDRA+probe (test code = detec table levels 96736-7) of SARS-CoV-2 Coronavirus (COVID-19) were present in [...] its performance characteristics were verified by the [facility] molecular diagnostics laboratory and is authorized for clinical diagnostic use. This laboratory is certified under the Clinical Laboratory Improvement Amendments (CLIA) as qualified to perform high complexity clinical laboratory testing.
--- NOTE | 2021-11-20 20:23 | RAD REPORT ---
EXAM DESCRIPTION: RAD - Chest Single View - 11/20/2021 8:04 pm CLINICAL HISTORY: weakness COMPARISON: Chest Single View dated 07/09/2021 FINDINGS: Lines: None. Lungs: No evidence of edema or pneumonia. Pleural: No significant pleural effusions or pneumothorax. Cardiac: The heart size is within normal limits. Bones: No acute fractures. Other: IMPRESSION: No acute cardiopulmonary disease.
[2021-11-20 20:34] LABS: Hematocrit 42.6 % (36.0-45.0); MPV 8.1 fL (7.6-11.3); RBC Red Blood Cell Count 4.65 M/uL (3.86-4.86)
--- NOTE | 2021-11-20 20:47 | RAD REPORT ---
EXAM DESCRIPTION: CT - Head Brain Wo Cont - 11/20/2021 8:37 pm CLINICAL HISTORY: Neuro deficit, acute, stroke suspected COMPARISON: No comparisons TECHNIQUE: All CT scans are performed using dose optimization technique as appropriate and may inclu de automated exposure control or mA/KV adjustment according to patient size. FINDINGS: No intracranial hemorrhage, hydrocephalus or extra-axial fluid collection.No areas of brai n edema or evidence of midline shift. Left mastoid effusion. The calvarium is intact. IMPRESSION: No acute intracranial abnormality.
--- NOTE | 2021-11-20 21:06 | EDPHYS ---
Physician Documentation [facility] Name: Yamilka Zamora Age: 61 yrs Sex: Female : 1960 Arrival Date: 11/20/2021 Time: 18:47 Bed 8 Private MD: ED Physician Vernon Max HPI: 11/20 20:51 This 61 yrs old Female presents to ER via EMS with complaints of weak and nuimb in kdr lower extremities. 20:51 Since Friday, the patient has had progressively worsening weakness of her lower kdr extremities. Today when she awoke around 10 AM, she felt weak but was still able to walk. She did have several episodes (4) falls without injury.. She laid back down around noon or so and awakened around 5 PM. At that time she noted that she was not able to safely stand and walk. She could bear her weight. However she could not make sufficiently to walk with her walker. She also noted that her extremities were numb. She denies any problem controlling her bowels or bladder. She has not had any episodes like this before. Onset: The symptoms/episode began/occurred gradually, Since Friday but more acutely today and this afternoon. Severity of symptoms: At their worst the symptoms were moderate severe incapacitating just prior to arrival, in the emergency department the symptoms are unchanged. Patient has chronically had a weakness in her lower extremity but is particularly worse today. 20:51 Patient states that she has a history of meningioma. kdr Historical: - Allergies: 18:52 Aspirin; jl7 18:52 Betadine; jl7 18:52 Erythromycin; jl7 18:52 Iodine; jl7 18:52 PENICILLINS; jl7 18:52 Zofran; jl7 - PMHx: 18:52 Bipolar disorder; depressive disorder; Fibromyalgia; Hypertensive disorder; Rheumatoid jl7 Arthritis; tachycardia; - PSHx: 18:52 breast lump removal; tubal ligation; ablation; jl7 - Immunization history:: Client reports receiving the 2nd dose of the Covid vaccine. - Social history:: Smoking status: Patient denies any tobacco usage or history of. ROS: 20:51 Constitutional: Negative for fever, chills, and weight loss, Eyes: Negative for injury, kdr pain, redness, and discharge, Neck: Negative for injury, pain, and swelling, Cardiovascular: Negative for chest pain, palpitations, and edema, Respiratory: Negative for shortness of breath, cough, wheezing, and pleuritic chest pain, Abdomen/GI: Negative for abdominal pain, nausea, vomiting, diarrhea, and constipation, Back: Negative for injury and pain, : Negative for injury, bleeding, discharge, and swelling, MS/Extremity: Negative for injury and deformity, Skin: Negative for injury, rash, and discoloration, Psych: Negative for depression, anxiety, suicide ideation, homicidal ideation, and hallucinations, Allergy/Immunology: Negative for hives, rash, and allergies, Endocrine: Negative for neck swelling, polydipsia, polyuria, polyphagia, and marked weight changes. 20:51 Neuro: Positive for Patient has paresthesias and numbness from her mid thigh distally. She has 2/5 strength in her lower extremities and 5/5 in her upper extremities. Exam: 20:51 Constitutional: This is a well developed, well nourished patient who is awake, alert, kdr and in no acute distress. Head/Face: Normocephalic, atraumatic. Eyes: Pupils equal round and reactive to light, extra-ocular motions intact. Lids and lashes normal. Conjunctiva and sclera are non-icteric and not injected. Cornea within normal limits. Periorbital areas with no swelling, redness, or edema. Neck: Trachea midline, no thyromegaly or masses palpated, and no cervical lymphadenopathy. Supple, full range of motion without nuchal rigidity, or vertebral point tenderness. No Meningismus. Chest/axilla: Normal chest wall appearance and motion. Nontender with no deformity. No lesions are appreciated. Cardiovascular: Regular rate and rhythm with a normal S1 and S2. No gallops, murmurs, or rubs. Normal PMI, no JVD. No pulse deficits. Respiratory: Lungs have equal breath sounds bilaterally, clear to auscultation and percussion. No rales, rhonchi or wheezes noted. No increased work of breathing, no retractions or nasal flaring. Abdomen/GI: Soft, non-tender, with normal bowel sounds. No distension or tympany. No guarding or rebound. No evidence of tenderness throughout. Back: No spinal tenderness. No costovertebral tenderness. Full range of motion. Skin: Warm, dry with normal turgor. Normal color with no rashes, no lesions, and no evidence of cellulitis. MS/ Extremity: Pulses equal, no cyanosis. Neurovascular intact. Full, normal range of motion. Psych: Awake, alert, with orientation to person, place and time. Behavior, mood, and affect are within normal limits. 20:51 Neuro: Orientation: is normal, Mentation: is normal, Motor: strength is 5/5 in the right arm and left arm, Strength is 2/5 in the right leg and left leg. Vital Signs: 18:48 BP 129 / 85; Pulse 90; Resp 15; Temp 99.1(O); Pulse Ox 98% on R/A; Weight 92.99 kg; jl7 Height 5 ft. 8 in. (172.72 cm); Pain 0/10; 19:20 BP 122 / 51; Pulse 88; Resp 18; Pulse Ox 99% on R/A; vc1 21:02 BP 112 / 56; Pulse 83; Resp 14; Pulse Ox 98% ; vc1 22:00 BP 105 / 53; Pulse 78; Resp 16; Pulse Ox 98% ; vc1 22:45 BP 111 / 54; Pulse 81; Resp 16; Pulse Ox 99% ; vc1 18:48 Body Mass Index 31.17 (92.99 kg, 172.72 cm) jl7 MDM: 20:51 Data reviewed: vital signs, nurses notes, lab test result(s), radiologic studies. kdr Counseling: I had a detailed discussion with the patient and/or guardian regarding: the historical points, exam findings, and any diagnostic results supporting the discharge/admit diagnosis, lab results, radiology results, the need to transfer to another facility. Physician consultation: Faraz Menchaca MD regarding regarding transfer, consult, after a discussion of the case, a recommendation for transfer for higher level of care is made, I discussion with Dr. Menchaca, we agreed that the best course of action at this time will be to transfer to a facility where an MRI of her spine could be performed.. 21:05 Patient medically screened. kdr 22:11 ED course: The patient requested [facility] but they were at capacity. kdr 11/20 19:54 Order name: Basic Metabolic Panel kdr 11/20 19:54 Order name: CBC with Diff; Complete Time: 21:31 kdr 11/20 19:54 Order name: CT Head Brain wo Cont; Complete Time: 21:31 kdr 11/20 19:54 Order name: Troponin HS kdr 11/20 19:54 Order name: XRAY Chest (1 view); Complete Time: 21: kdr 11/20 20:43 Order name: COVID-19 SARS RT PCR (Document "Date of Onset" if Symptomatic); Complete mw2 Time: 22:04 11/20 19:54 Order name: EKG; Complete Time: 19:55 kdr 11/20 19:54 Order name: Cardiac monitoring; Complete Time: 20:23 kdr 11/20 19:54 Order name: EKG - Nurse/Tech; Complete Time: 20:23 kdr 11/20 19:54 Order name: IV Saline Lock; Complete Time: 20:23 kdr 11/20 19:54 Order name: Labs collected and sent; Complete Time: 20:23 kdr Administered Medications: No medications were administered Disposition Summary: 11/20/21 21:05 Transfer Ordered Transfer Location: [facility] kdr Reason: Higher level of care kdr Condition: Fair kdr Problem: new kdr Symptoms: are unchanged kdr Accepting Physician: Dr. Lima/Hosp, \\T\\ Neurology(11/20/21 23:28) vc1 Diagnosis - Weakness kdr - Paresthesia of skin kdr Forms: - Medication Reconciliation Form kdr - SBAR form kdr Signatures: Dispatcher [employer] EDVernon Donohue MD MD kdr Destiney Medellin, RN RN jl7 Vesna Moore RN RN vc1 Corrections: (The following items were deleted from the chart) 22:08 21:05 r kdr kdr 23:28 22:08 Dr. Lima/Kiara, \\T\\ Neurology kdr vc1
--- NOTE | 2021-11-20 21:06 | ER ---
Nurse's Notes [facility] Name: Yamilka Zamora Age: 61 yrs Sex: Female : 1960 Arrival Date: 11/20/2021 Time: 18:47 Bed 8 Private MD: Diagnosis: Weakness;Paresthesia of skin Presentation: 11/20 18:48 Chief complaint: EMS states: Toned out for bilateral lower extremity weakness jl7 increasing since Friday, pt denies pain, denies N/V/D, denies cough and congestion, pt being evaluated for dementia and Parkinson's at PCP's. Coronavirus screen: At this time, the client does not indicate any symptoms associated with coronavirus-19. Ebola Screen: No symptoms or risks identified at this time. Initial Sepsis Screen: Does the patient meet any 2 criteria? No. Patient's initial sepsis screen is negative. Does the patient have a suspected source of infection? No. Patient's initial sepsis screen is negative. Risk Assessment: Do you want to hurt yourself or someone else? Patient reports no desire to harm self or others. Onset of symptoms was November 17, 2021. Care prior to arrival: Glucose check: 119. Transition of care: patient was not received from another setting of care. 18:48 Method Of Arrival: EMS: [facility] jl7 18:48 Acuity: KRYSTLE 3 jl7 Triage Assessment: 18:52 General: Appears in no apparent distress. uncomfortable, Behavior is calm, cooperative, jl7 appropriate for age. Pain: Denies pain. Neuro: Level of Consciousness is awake, alert, obeys commands, Oriented to person, place, time, situation. Cardiovascular: Patient's skin is warm and dry. Respiratory: Airway is patent Respiratory effort is even, unlabored, Respiratory pattern is regular, symmetrical. GI: Patient currently denies diarrhea, nausea, vomiting. : Denies burning with urination. Derm: Skin is pink, warm \T\ dry. Historical: - Allergies: 18:52 Aspirin; jl7 18:52 Betadine; jl7 18:52 Erythromycin; jl7 18:52 Iodine; jl7 18:52 PENICILLINS; jl7 18:52 Zofran; jl7 - PMHx: 18:52 Bipolar disorder; depressive disorder; Fibromyalgia; Hypertensive disorder; Rheumatoid jl7 Arthritis; tachycardia; - PSHx: 18:52 breast lump removal; tubal ligation; ablation; jl7 - Immunization history:: Client reports receiving the 2nd dose of the Covid vaccine. - Social history:: Smoking status: Patient denies any tobacco usage or history of. Screenin:55 Abuse screen: Denies threats or abuse. Denies injuries from another. Nutritional jl7 screening: No deficits noted. Tuberculosis screening: No symptoms or risk factors identified. 23:19 Fall Risk No fall in past 12 months (0 pts). Secondary diagnosis (15 points) impaired vc1 mobility, IV access (20 points). Ambulatory Aid- None/Bed Rest/Nurse Assist (0 pts). Gait- Impaired (20 pts.). Mental Status- Oriented to own ability (0 pts). Total Arauz Fall Scale indicates Low Risk Score (25-44 pts). Fall prevention measures have been instituted. Side Rails Up X 2. Assessment: 19:20 Reassessment: Patient and/or family updated on plan of care and expected duration. Pain vc1 level reassessed. Patient is alert, oriented x 3, equal unlabored respirations, skin warm/dry/pink. 22:12 Reassessment: Patient and/or family updated on plan of care and expected duration. Pain vc1 level reassessed. Patient is alert, oriented x 3, equal unlabored respirations, skin warm/dry/pink. Patient states symptoms have not improved. 23:18 Reassessment: Patient and/or family updated on plan of care and expected duration. Pain vc1 level reassessed. Patient is alert, oriented x 3, equal unlabored respirations, skin warm/dry/pink. Patient states symptoms have not improved. Vital Signs: 18:48 BP 129 / 85; Pulse 90; Resp 15; Temp 99.1(O); Pulse Ox 98% on R/A; Weight 92.99 kg; jl7 Height 5 ft. 8 in. (172.72 cm); Pain 0/10; 19:20 BP 122 / 51; Pulse 88; Resp 18; Pulse Ox 99% on R/A; vc1 21:02 BP 112 / 56; Pulse 83; Resp 14; Pulse Ox 98% ; vc1 22:00 BP 105 / 53; Pulse 78; Resp 16; Pulse Ox 98% ; vc1 22:45 BP 111 / 54; Pulse 81; Resp 16; Pulse Ox 99% ; vc1 18:48 Body Mass Index 31.17 (92.99 kg, 172.72 cm) jl7 ED Course: 18:47 Patient arrived in ED. iw 18:52 Triage completed. jl7 18:52 Arm band placed on right wrist. jl7 18:55 Patient has correct armband on for positive identification. Bed in low position. Call jl7 light in reach. Side rails up X2. Client placed on continuous cardiac and pulse oximetry monitoring. NIBP monitoring applied. Warm blanket given. 19:33 Vernon Max MD is Attending Physician. kdr 20:06 XRAY Chest (1 view) In Process Unspecified. EDMS 20:39 CT Head Brain wo Cont In Process Unspecified. EDMS 20:47 initiated a transfer with Bertha Black from [facility] [place]. mw2 21:03 initiated a transfer with Candi from [facility] [place]. mw2 21:10 [facility] denied due to capacity. mw2 21:[address] Max with the Doctor from [facility]. mw2 22:[address] Max with Dr. Black from [facility]. mw2 22:12 Vesna Moore, ALLIE is Primary Nurse. vc1 22:24 administrative approval given by Bertha Black/ patient has been accepted to [facility] to bed 2227/ Dr. Black accepted the patient in transfer/report to be called to [phone]. 23:19 No provider procedures requiring assistance completed. Patient transferred, IV remains vc1 in place. Administered Medications: No medications were administered Medication: 23:20 VIS not applicable for this client. vc1 Outcome: 21:05 ER care complete, transfer ordered by . kdr 23:19 Transferred by ground EMS to [facility], Transfer form completed. vc1 X-rays sent w/ patient. 23:19 Condition: stable 23:19 Instructed on the need for transfer. 23:28 Patient left the ED. vc1 Signatures: Dispatcher [employer] EDMS Vernon Mxa MD MD kdr Juliana Zamora RN RN iw Destiney Medellin RN RN 7 Jennifer Avila mw2 [place], Vesna, RN RN vc1 Corrections: (The following items were deleted from the chart) 23:19 22:12 Reassessment: Patient and/or family updated on plan of care and expected vc1 duration. Pain level reassessed. Patient is alert, oriented x 3, equal unlabored respirations, skin warm/dry/pink. Patient states symptoms have improved. vc1
[2021-11-20 22:05] LABS: Potassium 3.7 mmol/L (3.5-5.1); Troponin High Sensitivity 5.8 pg/mL (<58.9)
[2021-11-20 23:43] VITALS: TEMP 99.1
[2021-11-20 23:50] VITALS: BP 111/54; O2SAT 99
--- NOTE | 2021-11-21 07:18 | EKG ---
Test Date: 2021-11-20 Test Time: 20:11:35 Preparation Supervisor Freezing: NADIR MEASUREMENT RESULTS: Intervals: Rate: 89 DE: 164 QRSD: 78 QT: 368 QTc: 447 [place]: P: 54 DE: 164 QRS: -42 T: 53 INTERPRETIVE STATEMENTS: Normal sinus rhythm Left axis deviation Cannot rule out Inferior infarct, age undetermined Possible Anterolateral infarct, age undetermined Abnormal ECG Compared to ECG 07/10/2021 07:05:49 Left-axis deviation now present Myocardial infarct finding now present Electronically Signed On 11-21-21 07:17:11 CDT by Lawrence Pizarro
== END 2021-11-20 23:28 | disposition short-term general hospital (02) ==
LOC: ER 18:39
DX: R53.1 Weakness (principal); R20.2 Paresthesia of skin; I10 Essential (primary) hypertension; Z88.0 Allergy status to penicillin; Z88.3 Allergy status to other anti-infective agents; Z88.6 Allergy status to analgesic agent; Z88.8 Allergy status to other drugs, medicaments and biological substances; Z91.048 Other nonmedicinal substance allergy status
CPT/HCPCS: 36415; 70450; 71045; 80048; 84484; 85025; 93005; U0003